=== PATIENT | male | born 1965 | race African-American/Black ===

== ENCOUNTER → 2019-04-12 | Outpatient (CLI) | payer OTHER | LOC: YHH 12:35 ==

== ENCOUNTER 2019-09-25 11:55 | Emergency (ER) | payer OTHER ==
--- NOTE | 2019-09-25 12:09 | PDOC ---
History of Present Illness - General Chief Complaint: Pain, Acute Stated Complaint: ABDOMINAL PAIN Time Seen by Provider: 09/25/19 12:07 History Source: Patient Exam Limitations: No Limitations - History of Present Illness Initial Comments: 09/25/19 12:08 PCP: Anisha Rivera HPI: 53 M pmh HTN, HLD, COPD, ESRD (s/p kidney transplant 07/15/19 at [facility]), HIV, presenting with RLQ pain for 6 hours. Pain started at 6AM, described as throbbing, constant, progressively worsening, not relieved by Tylenol at 7AM, patient is unable to get into a comfortable position. Endorses subjective fevers , no chills, +nausea at home with 2 episodes of emesis this morning - no blood, just food from last night. Also endorsing SOB with the pain - non exertional, not at rest, no cough, none at the current time, no chest pain / tightness / edema. No history of kidney stones or UTI. Normal urination this morning and in the department without blood, odor, pain, burning. Normal BM this morning without blood or dark color. Follows with the [facility], Dr. Eveline Murdock. Scheduled for appointment 09/29/2019. [phone] All: Denies to me Meds: Prograf 16 mg BID, Cellcept 500 mg BID, Prednisone 5 daily, Valgancyclovir 450 mg MWF, Bactrim 500/80 daily, Protonix 40 mg daily, Nystatin , Colace 100 mg, Senna 8.6, Asa 81 mg, Dolutegravir 50 mg BID, Abacavir 600 mg daily, Lamivudine 25 mg, Nifedipine XL 60 mg BID, Tamsulosin 0.4 mg qHS, Metoprolol tartrate 25 mg BID, Sodium Bicarbonate BID PMH: As above PSH: As above SHx: History of Cocaine, ETOH, Marijuana Past History - Travel Traveled outside of the country in the last 30 days: No Close contact w/someone who was outside of country & ill: No - Past Medical History Allergies/Adverse Reactions: Allergies Allergy/AdvReac Type Severity Reaction Status Date / Time aspirin Allergy Intermediate bleeding, Verified 09/25/19 11:59 nausea Home Medications: Ambulatory Orders Abacavir Sulfate [Ziagen -] 2 tab PO DAILY #60 tablet 05/18/19 Lamivudine [Epivir Hbv] 25 mg PO DAILY #150 ml 05/18/19 Aspirin [ASA -] 81 mg PO DAILY 09/13/19 Darbepoetin Mike in Polysorbat [Aranesp] 40 mcg IJ WEEKLY 09/13/19 Docusate Sodium [Colace -] 100 mg PO TID PRN 09/13/19 Dolutegravir Sodium [Tivicay] 50 mg PO BID 09/13/19 Metoprolol Tartrate [Lopressor -] 50 mg PO BID 09/13/19 Mycophenolate Mofetil [Cellcept -] 1 tab PO BID 09/13/19 Nifedipine [Procardia Xl] 2 tab PO BID 09/13/19 Pantoprazole Sodium [Protonix] 40 mg PO DAILY 09/13/19 Prednisone 10 mg PO DAILY 09/13/19 Sennosides [Senna] 2 tab PO HS PRN 09/13/19 Sodium Bicarbonate - 2 tab PO BID 09/13/19 Tacrolimus Anhydrous [Prograf] 5 mg PO BID 09/13/19 Tacrolimus Anhydrous [Prograf] 15 cap PO BID 09/13/19 Tamsulosin HCl [Flomax] 0.4 mg PO HS 09/13/19 Valganciclovir HCl [Valcyte] 1 tab PO ASDIR 09/13/19 Magnesium Oxide 400 mg PO DAILY 09/25/19 Sulfamethoxazole/Trimethoprim [Bactrim Single Strength -] 1 tab PO DAILY Anemia: Yes Cancer: No Cardiac Disorders: Yes COPD: Yes (pulm nodules) CHF: Yes Diabetes: No Dialysis: Yes (perma cath rt chest wall) GI Disorders: Yes (GERD) HTN: Yes Liver Disease: No Psychiatric Problems: Yes Seizures: No - Surgical History Lung Surgery: Yes (THORACENTESIS) Neurologic Surgery: No - Psycho Social/Smoking Cessation Hx Smoking History: Former smoker Have you smoked in the past 12 months: Yes Number of Cigarettes Smoked Daily: 3 If you are a former smoker, when did you quit?: 2014 Cigars Per Day: 0 'Breaking Loose' booklet given: 10/17/14 Hx Alcohol Use: Yes (none since 2009) Drug/Substance Use Hx: Yes Substance Use Type: Alcohol, Cocaine, Marijuana Hx Substance Use Treatment: Yes (2009 detox and rehab) Review of Systems - Review of Systems Able to Perform ROS?: Yes Is the patient limited [place] proficient: Yes Constitutional: Yes: Fever (subjective). No: Chills, Diaphoresis HEENTM: No: Recent change in vision, Nose Congestion, Throat Pain Respiratory: Yes: Shortness of Breath (with the pain). No: Cough, SOB with Exertion, SOB at Rest, Wheezing, Productive cough, Hemoptysis Cardiac (ROS): No: Chest Pain, Irregular Heart Rate, Chest Tightness ABD/GI: No: Constipated, Diarrhea, Nausea, Poor Appetite, Poor Fluid Intake, Vomiting : No: Burning, Dysuria, Frequency Musculoskeletal: Yes: Back Pain (chronically). No: Muscle Pain, Muscle Weakness Integumentary: No: Pallor, Pruritus, Rash Neurological: No: Headache, Numbness, Tingling, Weakness Psychiatric: No: Stressors, Change in Appetite Endocrine: No: Increased Hunger, Increased Thirst, Unexplained Weight Gain, Unexplained Weight Loss, Change in Weight Hematologic/Lymphatic: No: Anemia, Blood Clots, Easy Bleeding All Other Systems: Reviewed and Negative *Physical Exam - Physical Exam 09/25/19 13:41 Vitals reviewed, AFVSS, hypertensive to 184/92 on arrival GEN: Obese, groaning loudly, swearing, appears stated age, NAD, uncomfortable, moving about the room in various positions. HEENT: NCAT, EOMI, PERRL. Sclera anicteric, non-injected. No facial asymmetry. Moist mucous membranes. Normal voice. Trachea midline. CV: RRR, S1/S2, no murmurs / rubs / gallops appreciated. LUNG: CTAB, normal work of breathing. No wheezes, rales, rhonchi. No cough. Speaking full sentences. GI: Soft, fibrotic mass in RLQ, +BS, +guarding with muscles and hands, unable to assess rebound. +CVAT on the right. +exlap scar, other surgical scars from kidney transplant. EXTREMITIES: 2+ distal pulses. No LE edema. No obvious deformities of all extremities. SKIN: Warm, dry, no rashes appreciated, non-jaundiced. PSYCH: Uncooperative, verbally aggressive/abusive with IV placement. NEURO: A&Ox3, CN grossly intact. Moving all extremities well. Normal strength and sensation grossly. ED Treatment Course - LABORATORY CBC & Chemistry Diagram: 09/25/19 13:20 09/25/19 12:30 Medical Decision Making - Medical Decision Making 09/25/19 13:51 53 M PMH HTN, HLD, COPD, ESRD (s/p kidney transplant 07/15/19 at [facility]), HIV, presenting with RLQ pain for 6 hours. History notable for transplant 3 months ago, acute onset of pain this AM, inability to get comfortable. Exam notable for hypertension, discomfort, R sided abdominal tenderness. DDX: Kidney stone, appendicitis, subacute graft failure/ischemia, renal artery stenosis, pancreatitis. - CBC, CMP, Mg, Phos, Lipase, Amylase, Lactate, Coags - UA, UCx - EKG, CXR - Plan for CTAP, with contrast pending GFR - 4mg Morphine POCUS PIV placed by myself and Dr. Clemetn in proximal left AC 09/25/19 18:09 - Cr 1.7, c/w 1.8 earlier this month per chart review - Pain is improving s/p 4mg morphine, 1L IVF, nap - Pending CT Results - Labs notable for elevated LFTs compared with prior, otherwise unremarkable 09/25/19 18:40 - Patient remains comfortable - CT concerning for cholecystitis, limited assessment of transplanted kidney - RUQ US ordered, Renal US ordered - ABX ordered, levcarmen, amparo 09/25/19 20:09 - Patient agrees to transfer - Accepted by Dr. Jeannie aSntana, Transplant Nephrology - Sign out given to Dr. Murphy, Transplant Surgeon - Face sheet sent, [facility] arranging [facility] transport Dispo: Transfer, [facility] Discharge - Discharge Information Problems reviewed: Yes Clinical Impression/Diagnosis: Transaminitis, Cholecystitis Condition: Guarded - Admission Yes - Follow up/Referral - Patient Discharge Instructions - Post Discharge Activity - Transfer to Acute Care Facility Receiving Facility [facility]: [facility] Accepting Physician:: Dr. Jeannie Santana
[2019-09-25 12:12] VITALS: BMI 25.1
--- NOTE | 2019-09-25 12:26 | PDOC ---
Attending Attestation - Resident Resident Name: HowardRichardRan - ED Attending Attestation I have performed the following: I have examined & evaluated the patient, The case was reviewed & discussed with the resident, I agree w/resident's findings & plan, Exceptions are as noted - HPI HPI: 09/25/19 12:23 51y M hx of htn, hl, HIV (on HAART), ckd sp kidney transplant presents with complaint of severe RLQ pain since 6am that is throbbing, progressively worsening without alleviating factors. No improvement with tylenol. Pt endorses nausea/ nbnb vomiting with his pain. There is no associated fever and chills, denies any problems iwth dysuria, hematuria, diarrhea melena, bpr. Denies any history of similar pain in the past. On exam the patient appears uncomfortable, is writhing around and groaning. Patient has mild diffuse right-sided abdominal pain, there is also pain with percussion. No CVA tenderness Pulmonary exam clear. Trace lower extremity edema Cardiac exam regular rate and rhythm Differential for the patient's symptoms includes appendicitis, graft rejection, kidney stone We will give the patient morphine for pain control, fluids for hydration, will obtain blood work and CT of the abdomen. - Physicial Exam PE: 09/25/19 18:33 see above - Medical Decision Making 09/25/19 17:36 The patient's labs are reviewed noted for mild anemia and the patient's creatinine is also noted to be 1.7 it is unclear what his baseline creatinine is. Patient's LFTs are also elevated. Awaiting CT of the abdomen 09/25/19 18:25 ct noted for thickened gb wall - ?cholecystitis - pt written for flagyl/levaquin also kidney was not normal appearing - will obtain kidney US and RUQ US [facility] transplant for possible transfer case signed out to evening team for dispo and reassessment Heart Score/ECG Review - ECG Impressions Comment:: 09/25/19 18:33 Twelve-lead EKG was performed and reviewed by me. There is normal sinus rhythm with a normal rate. Rate of [address] wave changes suggestive of acute ischemia
[2019-09-25] MEDS ORDERED: morphine CARPU-JECT 4 MG/1 ML DISP.SYRIN IVPUSH ONE (12:32)
[2019-09-25] MEDS ORDERED: morphine SULFATE 4 MG/ML VIAL ONE (13:05)
[2019-09-25 13:31] LABS: BASO % 0.5 % (0-2.0); HEMATOCRIT 30.2 % (35.4-49); HEMOGLOBIN 9.3 GM/dL (11.7-16.9); LYMPH % 4.7 % (8-40); MCH 25.4 pg (25.7-33.7); MCHC 30.6 g/dl (32.0-35.9); MEAN CELL VOLUME 82.9 fl (80-96); MEAN PLT VOLUME 8.1 fl (7.5-11.1); MONO % 8.3 % (3.8-10.2); NEUT % 86.5 % (42.8-82.8); PLATELET COUNT 261 K/MM3 (134-434); RBC 3.65 M/mm3 (4.00-5.60); RDW 18.1 % (11.9-15.9)
[2019-09-25 13:50] LABS: EPI CELLS 0.7 /HPF (0-5/HPF); HYALINE CASTS 0 /lpf (0-8); URINE APPEARANCE CLEAR; URINE BACTERIA 26.6 /hpf (NEGATIVE); URINE BILIRUBIN NEGATIVE (NEGATIVE); URINE COLOR YELLOW; URINE GLUCOSE (UA) TRACE (NEGATIVE); URINE KETONE NEGATIVE (NEGATIVE); URINE LEUK ESTERASE NEGATIVE (NEGATIVE); URINE NITRITE NEGATIVE (NEGATIVE); URINE PROTEIN 2+ (NEGATIVE); URINE RBC 1 /hpf (0-4); URINE UROBILINOGEN 0.2 mg/dL (0.2-1.0); URINE WBC 1 /hpf (0-5)
[2019-09-25 13:51] LABS: MAGNESIUM 1.7 mg/dL (1.8-2.4); PHOSPHOROUS 2.1 mg/dL (2.5-4.9)
[2019-09-25 13:54] LABS: ALBUMIN 3.5 g/dl (3.4-5.0); BILIRUBIN,TOTAL 0.8 mg/dL (0.2-1); BLOOD UREA NITROGEN 30.7 mg/dL (7-18); CALCIUM 10.5 mg/dL (8.5-10.1); CREATININE 1.7 mg/dL (0.55-1.3); POTASSIUM 4.5 mmol/L (3.5-5.1); TOT PROT 6.4 g/dl (6.4-8.2)
[2019-09-25] MEDS ORDERED: SODIUM CHLORIDE 1,000 ML IV ONE (14:15)
--- NOTE | 2019-09-25 14:37 | EKG ---
Test Reason : Blood Pressure : / mmHG Vent. Rate : 084 BPM Atrial Rate : 084 BPM P-R Int : 168 ms QRS Dur : 088 ms QT Int : 342 ms P-R-T Axes : 069 -03 045 degrees QTc Int : 404 ms NORMAL SINUS RHYTHM POSSIBLE LEFT ATRIAL ENLARGEMENT BORDERLINE ECG Confirmed by MD HORTENSIA, DM ([id number]) on 09/25/2019 2:37:25 PM Referred By: Confirmed By:DM BAZAN MD
[2019-09-25 14:59] LABS: ANISOCYTOSIS 1+; MACROCYTOSIS 0; PLATELET ESTIMATE NORMAL
[2019-09-25 17:38] VITALS: TEMP 98
[2019-09-25 22:18] VITALS: BP 169/79; PULSE 96
== END 2019-09-25 23:06 | disposition short-term general hospital (02) ==
LOC: JER 11:55
PROC: 3E0 Administration, Physiological Systems and Anatomical Regions, Introduction (ICD-10-PCS; principal; 2019-09-25)
PROC: 3E03329 Introduction of Other Anti-infective into Peripheral Vein, Percutaneous Approach (ICD-10-PCS; 2019-09-25)
PROC: 3E033NZ Introduction of Analgesics, Hypnotics, Sedatives into Peripheral Vein, Percutaneous Approach (ICD-10-PCS; 2019-09-25)
DX: K81.9 Cholecystitis, unspecified (principal); R74.0 Nonspecific elevation of levels of transaminase and lactic acid dehydrogenase [LDH]; I13.2 Hypertensive heart and chronic kidney disease with heart failure and with stage 5 chronic kidney disease, or end stage renal disease; N18.6 End stage renal disease; Z94.0 Kidney transplant status; E78.5 Hyperlipidemia, unspecified; D64.9 Anemia, unspecified; J44.9 Chronic obstructive pulmonary disease, unspecified; K21.9 Gastro-esophageal reflux disease without esophagitis; Z87.891 Personal history of nicotine dependence; Z21 Asymptomatic human immunodeficiency virus [HIV] infection status; Z95.828 Presence of other vascular implants and grafts; Z86.59 Personal history of other mental and behavioral disorders
CPT/HCPCS: 36415; 71045-TC-FY; 74176-TC; 80053; 81003; 82150; 83605; 83690; 83735; 84100; 85025; 87086; 93005; 93010; 96361; 96365; 96367; 96375; 99285-25; J7030

== ENCOUNTER 2021-01-19 00:55 | Inpatient (IN) | payer OTHER ==
[2021-01-19 03:33] LABS: BASO % 1.3 % (0-2.0); EOS % 0.8 % (0-4.5); HEMATOCRIT 33.6 % (35.4-49); HEMOGLOBIN 10.7 GM/dL (11.7-16.9); LYMPH % 14.6 % (8-40); MCH 27.3 pg (25.7-33.7); MEAN CELL VOLUME 85.4 fl (80-96); MEAN PLT VOLUME 9.1 fl (7.5-11.1); MONO % 6.9 % (3.8-10.2); NEUT % 76.4 % (42.8-82.8); PLATELET COUNT 201 K/MM3 (134-434); RBC 3.93 M/mm3 (4.00-5.60); RDW 17.5 % (11.9-15.9); WHITE BLOOD COUNT 10.6 K/mm3 (4.0-10.0)
[2021-01-19 03:40] LABS: INR 0.89 (0.83-1.09)
[2021-01-19 03:43] LABS: ACTIVATED PTT 34.2 SECONDS (25.2-36.5)
[2021-01-19 03:56] LABS: CALCIUM 9.1 mg/dL (8.5-10.1)
[2021-01-19 03:57] LABS: ALBUMIN 3.6 g/dl (3.4-5.0)
[2021-01-19 04:00] LABS: CREATININE 1.7 mg/dL (0.55-1.3)
[2021-01-19 04:01] LABS: BILIRUBIN,TOTAL 0.3 mg/dL (0.2-1)
[2021-01-19 04:02] LABS: TOT PROT 6.6 g/dl (6.4-8.2)
[2021-01-19] MEDS ORDERED: INSULIN REGULAR HUMAN 100 UNITS/ML *VIAL IVPUSH ONE (04:20)
[2021-01-19] MEDS ORDERED: DEXTROSE 50%-WATER - 25 GM/50 ML VIAL IVPUSH ONE (04:20)
[2021-01-19] MEDS ORDERED: CALCIUM GLUCONATE 10% - 1,000 MG/10 ML VIAL ONE (04:26)
[2021-01-19] MEDS ORDERED: DEXTROSE 50%-WATER 25 GM/50 ML DISP.SYRIN ONE (04:26)
[2021-01-19] MEDS: CALCIUM GLUC IN NACL, ISO-OSM 1 GM/50 ML BAG IVPB ONE ×2 (04:41→07:51)
[2021-01-19] MEDS ORDERED: FUROSEMIDE 40 MG/4 ML INJECTABLE VIAL IVPUSH ONE (05:12)
[2021-01-19] MEDS ORDERED: hydrALAZINE HCL 25 MG TABLET (FP) ONE (06:18)
[2021-01-19] MEDS ORDERED: HEPARIN NA (PORCINE) 5,000 UNITS/ML 1ML VIAL ONE (06:19)
[2021-01-19] MEDS ORDERED: FUROSEMIDE 40 MG/4 ML INJECTABLE VIAL ONE (07:44)
[2021-01-19] MEDS: hydrALAZINE HCL 50 MG TABLET (FP) PO SCH ×3 (08:42→22:27)
[2021-01-19] MEDS: HEPARIN NA (PORCINE) 5,000 UNITS/ML 1ML VIAL SQ SCH ×3 (08:43→22:29)
[2021-01-19] MEDS ORDERED: TACROLIMUS ANHYDROUS 1 MG CAPSULE PO SCH (10:00)
[2021-01-19] MEDS ORDERED: ASPIRIN 81 MG CHEWABLE TABLETS PO SCH (10:00)
[2021-01-19] MEDS ORDERED: PT OWN MED DRAWER 7, Y5N ONE ×2 (11:17→22:02)
[2021-01-19] MEDS: TACROLIMUS ANHYDROUS PO SCH ×2 (11:41→22:29)
[2021-01-19] MEDS: MYCOPHENOLATE MOFETIL 500 MG TABLET PO SCH ×2 (11:42→22:28)
[2021-01-19 12:06] LABS: HEMATOCRIT 34.2 % (35.4-49); HEMOGLOBIN 10.7 GM/dL (11.7-16.9); MCH 26.5 pg (25.7-33.7); MCHC 31.2 g/dl (32.0-35.9); MEAN CELL VOLUME 84.9 fl (80-96); PLATELET COUNT 198 K/MM3 (134-434); RBC 4.03 M/mm3 (4.00-5.60); RDW 17.2 % (11.9-15.9)
[2021-01-19 12:28] LABS: ALBUMIN 3.8 g/dl (3.4-5.0); BLOOD UREA NITROGEN 40.6 mg/dL (7-18); CALCIUM 9.5 mg/dL (8.5-10.1); MAGNESIUM 2.1 mg/dL (1.8-2.4)
[2021-01-19 12:32] LABS: CREATININE 1.7 mg/dL (0.55-1.3); PHOSPHOROUS 2.7 mg/dL (2.5-4.9)
[2021-01-19 12:33] LABS: BILIRUBIN,TOTAL 0.5 mg/dL (0.2-1); TOT PROT 6.9 g/dl (6.4-8.2)
[2021-01-19] MEDS: predniSONE 5 MG TABLET (UD) PO SCH (15:13)
[2021-01-19 15:32] VITALS: BMI 26.4
[2021-01-20] MEDS: hydrALAZINE HCL 50 MG TABLET (FP) PO SCH ×3 (05:53→23:03)
[2021-01-20] MEDS: HEPARIN NA (PORCINE) 5,000 UNITS/ML 1ML VIAL SQ SCH ×3 (05:53→23:02)
[2021-01-20 07:15] LABS: HEMATOCRIT 31.3 % (35.4-49); MCH 27.5 pg (25.7-33.7); MCHC 31.9 g/dl (32.0-35.9); MEAN CELL VOLUME 86.1 fl (80-96); MEAN PLT VOLUME 8.7 fl (7.5-11.1); PLATELET COUNT 168 K/MM3 (134-434); RBC 3.64 M/mm3 (4.00-5.60); RDW 17.5 % (11.9-15.9)
[2021-01-20 07:39] LABS: ALBUMIN 3.2 g/dl (3.4-5.0); BLOOD UREA NITROGEN 27.6 mg/dL (7-18)
[2021-01-20 07:40] LABS: BILIRUBIN,TOTAL 0.5 mg/dL (0.2-1); CALCIUM 9.5 mg/dL (8.5-10.1); TOT PROT 5.8 g/dl (6.4-8.2)
[2021-01-20 07:42] LABS: CREATININE 1.5 mg/dL (0.55-1.3); MAGNESIUM 1.9 mg/dL (1.8-2.4)
[2021-01-20 07:43] LABS: PHOSPHOROUS 2.9 mg/dL (2.5-4.9)
[2021-01-20] MEDS ORDERED: PT OWN MED DRAWER 7, Y5N ONE ×4 (09:08→21:28)
[2021-01-20] MEDS: predniSONE 5 MG TABLET (UD) PO SCH (10:31)
[2021-01-20] MEDS: MYCOPHENOLATE MOFETIL 500 MG TABLET PO SCH ×2 (12:05→23:01)
[2021-01-20] MEDS: TACROLIMUS ANHYDROUS PO SCH ×2 (12:05→23:04)
[2021-01-20] MEDS ORDERED: DOCUSATE SODIUM 100 MG CAPSULE (FP) PO PRN (12:58)
[2021-01-20] MEDS ORDERED: DOLUTEGRAVIR SODIUM 50 MG TABLET (NON-FORMULARY) PO SCH (22:00)
[2021-01-20] MEDS ORDERED: lamiVUDine 150 MG TABLET PO SCH (22:00)
[2021-01-21] MEDS: hydrALAZINE HCL 50 MG TABLET (FP) PO SCH ×2 (05:20→13:07)
[2021-01-21] MEDS: HEPARIN NA (PORCINE) 5,000 UNITS/ML 1ML VIAL SQ SCH (05:20)
[2021-01-21 06:38] LABS: BASO % 0.7 % (0-2.0); EOS % 1.1 % (0-4.5); HEMOGLOBIN 10.7 GM/dL (11.7-16.9); LYMPH % 25.3 % (8-40); MCH 27.2 pg (25.7-33.7); MCHC 31.5 g/dl (32.0-35.9); MEAN CELL VOLUME 86.2 fl (80-96); MEAN PLT VOLUME 8.6 fl (7.5-11.1); NEUT % 62.9 % (42.8-82.8); PLATELET COUNT 185 K/MM3 (134-434); RBC 3.95 M/mm3 (4.00-5.60); RDW 17.3 % (11.9-15.9); WHITE BLOOD COUNT 8.2 K/mm3 (4.0-10.0)
[2021-01-21 07:03] LABS: ALBUMIN 3.6 g/dl (3.4-5.0); BLOOD UREA NITROGEN 24.1 mg/dL (7-18); CALCIUM 9.7 mg/dL (8.5-10.1); MAGNESIUM 1.9 mg/dL (1.8-2.4)
[2021-01-21 07:06] LABS: CREATININE 1.4 mg/dL (0.55-1.3); PHOSPHOROUS 2.8 mg/dL (2.5-4.9)
[2021-01-21 07:08] LABS: BILIRUBIN,TOTAL 0.5 mg/dL (0.2-1); TOT PROT 6.5 g/dl (6.4-8.2)
[2021-01-21] MEDS ORDERED: PT OWN MED DRAWER 7, Y5N ONE (09:37)
[2021-01-21] MEDS: MYCOPHENOLATE MOFETIL 500 MG TABLET PO SCH (09:48)
[2021-01-21] MEDS: predniSONE 5 MG TABLET (UD) PO SCH (09:48)
[2021-01-21] MEDS: TACROLIMUS ANHYDROUS PO SCH (09:49)
[2021-01-21] MEDS ORDERED: ABACAVIR SULFATE 300 MG TABLET PO SCH (10:00)
[2021-01-21 14:51] VITALS: BP 163/93; PULSE 104; TEMP 98.4
== END 2021-01-21 15:12 | disposition home or self-care (01) | DRG 291 ==
LOC: JER 00:55 → JERBED 04:21 → J4W 09:49
PROVIDERS: ADMIT Internal Medicine; ATTEND Internal Medicine
DX: I13.2 Hypertensive heart and chronic kidney disease with heart failure and with stage 5 chronic kidney disease, or end stage renal disease (principal); I50.23 Acute on chronic systolic (congestive) heart failure; Z94.0 Kidney transplant status; Z21 Asymptomatic human immunodeficiency virus [HIV] infection status; J44.9 Chronic obstructive pulmonary disease, unspecified; R59.1 Generalized enlarged lymph nodes; R74.01 Elevation of levels of liver transaminase levels; N18.9 Chronic kidney disease, unspecified; E87.5 Hyperkalemia
CPT/HCPCS: 36415; 71045-TC-FY; 76700-TC; 80053; 80197; 82550; 82553; 82728; 82962; 83540; 83550; 83735; 83880; 84100; 84484; 85025; 85027; 85045; 85610; 85730; 93005; 93010; 97116-GP; 97161-GP; 99285-25; C9803; J1644; J7517; U0003; U0005

== ENCOUNTER 2022-08-16 11:31 | Observation (INO) | payer OTHER ==
[2022-08-16 11:43] VITALS: RESP 18
[2022-08-16 14:17] LABS: BASO % 0.7 % (0-2.0); EOS % 1.1 % (0-4.5); HEMATOCRIT 37.8 % (35.4-49); HEMOGLOBIN 11.5 GM/dL (11.7-16.9); LYMPH % 13.2 % (8-40); MCH 24.9 pg (25.7-33.7); MCHC 30.4 g/dl (32.0-35.9); MEAN PLT VOLUME 8.6 fl (7.5-11.1); MONO % 9.3 % (3.8-10.2); NEUT % 75.7 % (42.8-82.8); PLATELET COUNT 218 10^3/uL (134-434); RBC 4.61 M/mm3 (4.00-5.60); RDW 16.5 % (11.9-15.9); WHITE BLOOD COUNT 12.9 K/mm3 (4.0-10.0)
[2022-08-16 14:42] LABS: ALBUMIN 3.7 g/dl (3.4-5.0); BLOOD UREA NITROGEN 33.9 mg/dL (7-18)
[2022-08-16] MEDS ORDERED: ACETAMINOPHEN 325 MG TABLET (FP) PO ONE (14:46)
[2022-08-16 14:47] LABS: TOT PROT 6.8 g/dl (6.4-8.2)
[2022-08-16] MEDS ORDERED: ACETAMINOPHEN 325 MG TABLET (FP) ONE (14:49)
[2022-08-16 14:50] LABS: N-TERMINAL BNP 3911.9 pg/ml (5-125)
[2022-08-16 14:55] LABS: BILIRUBIN,TOTAL 0.7 mg/dL (0.2-1); CREATININE 2.4 mg/dL (0.55-1.3)
[2022-08-16] MEDS ORDERED: FUROSEMIDE 20 MG TABLET (FP) PO ONE (15:08)
[2022-08-16] MEDS ORDERED: FUROSEMIDE 20 MG TABLET (FP) ONE (15:58)
[2022-08-16] MEDS ORDERED: oxyCODONE HCL 5 MG TABLET PO ONE ×2 (16:07→20:27)
[2022-08-16] MEDS ORDERED: oxyCODONE HCL 5 MG TABLET ONE ×2 (16:21→20:28)
[2022-08-16] MEDS ORDERED: MELATONIN 5 MG TABLETS PO PRN (16:47)
[2022-08-16] MEDS ORDERED: DOCUSATE SODIUM 100 MG CAPSULE (FP) PO PRN (16:47)
[2022-08-16] MEDS ORDERED: ARTIFICIAL TEARS (POLYVINYL ALCOHOL) OPTH DROPS OU PRN (16:47)
[2022-08-16] MEDS ORDERED: ALBUTEROL SO4 HFA INHALER IH PRN (16:47)
[2022-08-16] MEDS ORDERED: SENNOSIDES 8.6MG TABLET (FP) PO PRN (16:47)
[2022-08-16] MEDS ORDERED: HEPARIN NA (PORCINE) 5,000 UNITS/ML 1ML VIAL ONE (21:17)
[2022-08-16] MEDS ORDERED: TAMSULOSIN HCL 0.4 MG CAP ONE (21:17)
[2022-08-16] MEDS ORDERED: hydrALAZINE HCL 50 MG TABLET (FP) ONE (21:17)
[2022-08-16] MEDS: TAMSULOSIN HCL 0.4 MG CAP PO SCH (21:28)
[2022-08-16] MEDS: BUDESONIDE/FORMETEROL FUMARATE 80/4.5 mcg INHALER IH SCH (21:28)
[2022-08-16] MEDS: lamiVUDine 150 MG TABLET PO SCH (21:28)
[2022-08-16] MEDS: HEPARIN NA (PORCINE) 5,000 UNITS/ML 1ML VIAL SQ SCH (21:28)
[2022-08-16] MEDS: hydrALAZINE HCL 50 MG TABLET (FP) PO SCH (21:28)
[2022-08-16] MEDS: MYCOPHENOLATE MOFETIL 500 MG TABLET PO SCH (21:28)
[2022-08-16] MEDS: TACROLIMUS ANHYDROUS PO SCH (21:28)
[2022-08-16] MEDS: DOLUTEGRAVIR SODIUM 50 MG TABLET (NON-FORMULARY) PO SCH (21:28)
[2022-08-16] MEDS: SODIUM BICARBONATE 650 MG TABLET PO SCH (21:28)
[2022-08-16] MEDS ORDERED: TACROLIMUS ANHYDROUS 1 MG CAPSULE PO SCH (22:00)
[2022-08-17] MEDS ORDERED: HEPARIN NA (PORCINE) 5,000 UNITS/ML 1ML VIAL ONE ×2 (05:53→15:19)
[2022-08-17] MEDS ORDERED: hydrALAZINE HCL 50 MG TABLET (FP) ONE ×2 (05:53→15:18)
[2022-08-17] MEDS: HEPARIN NA (PORCINE) 5,000 UNITS/ML 1ML VIAL SQ SCH ×2 (06:12→15:26)
[2022-08-17] MEDS: hydrALAZINE HCL 50 MG TABLET (FP) PO SCH ×3 (06:12→23:59)
[2022-08-17] MEDS ORDERED: NIFEdipine E.R. 30 MG TABLET PO SCH (10:00)
[2022-08-17] MEDS ORDERED: PANTOPRAZOLE 40 MG TABLET PO ONE (10:34)
[2022-08-17] MEDS ORDERED: cloNIDine HCL 0.1 MG TABLET ONE (10:35)
[2022-08-17] MEDS ORDERED: FUROSEMIDE 20 MG TABLET (FP) ONE (10:35)
[2022-08-17] MEDS ORDERED: MAGNESIUM OXIDE 400 MG TABLET (FP) ONE (10:35)
[2022-08-17] MEDS ORDERED: ISOSORBIDE MONONITRATE 30 MG TAB.SR.24H (FP) PO ONE (10:35)
[2022-08-17] MEDS ORDERED: ASPIRIN 81 MG CHEWABLE TABLETS ONE (10:35)
[2022-08-17] MEDS ORDERED: CHOLECALCIFEROL (VIT D3) 1,000 UNIT (25 MCG) TABLET ONE (10:35)
[2022-08-17] MEDS: FUROSEMIDE 20 MG TABLET (FP) PO SCH (12:03)
[2022-08-17] MEDS: ASPIRIN 81 MG CHEWABLE TABLETS PO SCH (12:03)
[2022-08-17] MEDS: cloNIDine HCL 0.1 MG TABLET PO SCH (12:03)
[2022-08-17] MEDS: ISOSORBIDE MONONITRATE 30 MG TAB.SR.24H (FP) PO SCH (12:05)
[2022-08-17] MEDS: predniSONE 5 MG TABLET (UD) PO SCH (12:06)
[2022-08-17] MEDS: PANTOPRAZOLE 40 MG TABLET PO SCH (12:06)
[2022-08-17] MEDS: MAGNESIUM OXIDE 400 MG TABLET (FP) PO SCH (12:06)
[2022-08-17] MEDS: lamiVUDine 150 MG TABLET PO SCH (12:08)
[2022-08-17] MEDS: DOLUTEGRAVIR SODIUM 50 MG TABLET (NON-FORMULARY) PO SCH (12:08)
[2022-08-17] MEDS: CINACALCET HCL 30 MG TAB (FP) PO SCH (12:09)
[2022-08-17] MEDS: TACROLIMUS ANHYDROUS PO SCH (12:10)
[2022-08-17] MEDS: MYCOPHENOLATE MOFETIL 500 MG TABLET PO SCH (12:11)
[2022-08-17] MEDS: CHOLECALCIFEROL (VIT D3) 1,000 UNIT (25 MCG) TABLET PO SCH (12:11)
[2022-08-17] MEDS: BUDESONIDE/FORMETEROL FUMARATE 80/4.5 mcg INHALER IH SCH (13:40)
[2022-08-17] MEDS: SODIUM BICARBONATE 650 MG TABLET PO SCH ×2 (13:41→23:59)
[2022-08-17] MEDS: ABACAVIR SULFATE 300 MG TABLET PO SCH (13:42)
[2022-08-17 16:41] LABS: CALCIUM 10.4 mg/dL (8.5-10.1)
[2022-08-17 16:42] LABS: ALBUMIN 3.3 g/dl (3.4-5.0); BLOOD UREA NITROGEN 30.1 mg/dL (7-18)
[2022-08-17 16:45] LABS: CREATININE 2.4 mg/dL (0.55-1.3)
[2022-08-17 16:47] LABS: BILIRUBIN,TOTAL 0.6 mg/dL (0.2-1); TOT PROT 6.2 g/dl (6.4-8.2)
[2022-08-18] MEDS: MYCOPHENOLATE MOFETIL 500 MG TABLET PO SCH ×3 (00:01→23:50)
[2022-08-18] MEDS: BUDESONIDE/FORMETEROL FUMARATE 80/4.5 mcg INHALER IH SCH ×3 (00:02→22:45)
[2022-08-18] MEDS: TAMSULOSIN HCL 0.4 MG CAP PO SCH ×2 (00:16→22:43)
[2022-08-18] MEDS: cloNIDine HCL 0.1 MG TABLET PO SCH ×4 (00:16→22:43)
[2022-08-18] MEDS: ACETAMINOPHEN 325 MG TABLET (FP) PO PRN (00:43)
[2022-08-18] MEDS: lamiVUDine 150 MG TABLET PO SCH ×4 (00:52→23:51)
[2022-08-18] MEDS: TACROLIMUS ANHYDROUS PO SCH ×4 (00:53→23:50)
[2022-08-18] MEDS: DOLUTEGRAVIR SODIUM 50 MG TABLET (NON-FORMULARY) PO SCH ×3 (00:53→23:51)
[2022-08-18] MEDS ORDERED: oxyCODONE HCL 5 MG TABLET PO ONE (03:44)
[2022-08-18] MEDS: hydrALAZINE HCL 50 MG TABLET (FP) PO SCH ×3 (07:02→22:42)
[2022-08-18] MEDS: HEPARIN NA (PORCINE) 5,000 UNITS/ML 1ML VIAL SQ SCH ×4 (07:03→22:44)
[2022-08-18] MEDS ORDERED: ACETAMINOPHEN 500 MG TABLET (FP) PO ONE (10:07)
[2022-08-18] MEDS: predniSONE 5 MG TABLET (UD) PO SCH (10:44)
[2022-08-18] MEDS: SODIUM BICARBONATE 650 MG TABLET PO SCH ×3 (10:44→22:43)
[2022-08-18] MEDS: FUROSEMIDE 20 MG TABLET (FP) PO SCH (10:44)
[2022-08-18] MEDS: ASPIRIN 81 MG CHEWABLE TABLETS PO SCH (10:44)
[2022-08-18] MEDS: CHOLECALCIFEROL (VIT D3) 1,000 UNIT (25 MCG) TABLET PO SCH ×2 (10:44→13:36)
[2022-08-18] MEDS: ISOSORBIDE MONONITRATE 30 MG TAB.SR.24H (FP) PO SCH (10:44)
[2022-08-18] MEDS: PANTOPRAZOLE 40 MG TABLET PO SCH (10:44)
[2022-08-18] MEDS: MAGNESIUM OXIDE 400 MG TABLET (FP) PO SCH (10:44)
[2022-08-18] MEDS: CINACALCET HCL 30 MG TAB (FP) PO SCH (10:45)
[2022-08-18] MEDS: ABACAVIR SULFATE 300 MG TABLET PO SCH (10:48)
[2022-08-18] MEDS: LIDOCAINE 5% TOPICAL PATCH TP SCH (11:30)
[2022-08-18] MEDS ORDERED: LIDOCAINE PATCH REMOVAL MC SCH (22:00)
[2022-08-19] MEDS: HEPARIN NA (PORCINE) 5,000 UNITS/ML 1ML VIAL SQ SCH ×2 (06:37→14:15)
[2022-08-19] MEDS: hydrALAZINE HCL 50 MG TABLET (FP) PO SCH ×2 (06:37→14:15)
[2022-08-19] MEDS: ASPIRIN 81 MG CHEWABLE TABLETS PO SCH (11:02)
[2022-08-19] MEDS: cloNIDine HCL 0.1 MG TABLET PO SCH (11:02)
[2022-08-19] MEDS: CHOLECALCIFEROL (VIT D3) 1,000 UNIT (25 MCG) TABLET PO SCH (11:02)
[2022-08-19] MEDS: FUROSEMIDE 20 MG TABLET (FP) PO SCH (11:03)
[2022-08-19] MEDS: ISOSORBIDE MONONITRATE 30 MG TAB.SR.24H (FP) PO SCH (11:03)
[2022-08-19] MEDS: ABACAVIR SULFATE 300 MG TABLET PO SCH (11:04)
[2022-08-19] MEDS: TACROLIMUS ANHYDROUS PO SCH (11:04)
[2022-08-19] MEDS: MYCOPHENOLATE MOFETIL 500 MG TABLET PO SCH (11:04)
[2022-08-19] MEDS: predniSONE 5 MG TABLET (UD) PO SCH (11:04)
[2022-08-19] MEDS: SODIUM BICARBONATE 650 MG TABLET PO SCH (11:05)
[2022-08-19] MEDS: PANTOPRAZOLE 40 MG TABLET PO SCH (11:05)
[2022-08-19] MEDS: LIDOCAINE 5% TOPICAL PATCH TP SCH (11:05)
[2022-08-19] MEDS: CINACALCET HCL 30 MG TAB (FP) PO SCH (11:05)
[2022-08-19] MEDS: MAGNESIUM OXIDE 400 MG TABLET (FP) PO SCH (11:06)
[2022-08-19] MEDS: DOLUTEGRAVIR SODIUM 50 MG TABLET (NON-FORMULARY) PO SCH (11:06)
[2022-08-19] MEDS: lamiVUDine 150 MG TABLET PO SCH (11:06)
[2022-08-19] MEDS: ACETAMINOPHEN 325 MG TABLET (FP) PO PRN (11:08)
[2022-08-19] MEDS: BUDESONIDE/FORMETEROL FUMARATE 80/4.5 mcg INHALER IH SCH (11:11)
[2022-08-19 14:28] VITALS: BP 136/81; PULSE 83; TEMP 98.6
[2022-08-19 15:43] VITALS: BMI 25.4
== END 2022-08-19 17:58 | disposition home or self-care (01) ==
LOC: JER 11:31 → JERBED 16:09 → J7W 08-17 16:42 → JERBED 08-18 16:17 → J8W 08-18 16:18
PROVIDERS: ADMIT Internal Medicine; ATTEND Internal Medicine
PROC: 3E023GC Introduction of Other Therapeutic Substance into Muscle, Percutaneous Approach (ICD-10-PCS; principal; 2022-08-16)
DX: I13.0 Hypertensive heart and chronic kidney disease with heart failure and stage 1 through stage 4 chronic kidney disease, or unspecified chronic kidney disease (principal); I50.9 Heart failure, unspecified; N18.9 Chronic kidney disease, unspecified; B20 Human immunodeficiency virus [HIV] disease; Y00.XXXA Assault by blunt object, initial encounter; Y93.89 Activity, other specified; Z94.0 Kidney transplant status; Y92.89 Other specified places as the place of occurrence of the external cause; R56.9 Unspecified convulsions; J44.9 Chronic obstructive pulmonary disease, unspecified; N20.0 Calculus of kidney; Z99.2 Dependence on renal dialysis; D64.9 Anemia, unspecified; Z88.8 Allergy status to other drugs, medicaments and biological substances; F17.210 Nicotine dependence, cigarettes, uncomplicated; F14.21 Cocaine dependence, in remission
CPT/HCPCS: 0241U-QW; 36415; 71046-TC-FY; 73590-TC-LT-FY; 73610-TC-LT-FY; 80053; 83880; 84484; 85025; 93005; 93010; 93970-TC; 96372; 97116-GP; 97161-GP; 99285-25; G0378; J1644; J7517

== ENCOUNTER 2023-04-25 06:05 | Inpatient (IN) | payer OTHER ==
[2023-04-25] MEDS: ALBUTEROL SO4 2.5/IPRATROPIUM 0.5 INH SOL 3 ML VIAL.NEB. NEB SCH ×4 (06:30→08:23)
[2023-04-25 07:03] LABS: BASO % 0.4 % (0-2.0); EOS % 1.5 % (0-4.5); HEMATOCRIT 36.2 % (35.4-49); HEMOGLOBIN 11.7 GM/dL (11.7-16.9); LYMPH % 7.9 % (8-40); MCH 25.5 pg (25.7-33.7); MCHC 32.2 g/dl (32.0-35.9); MEAN CELL VOLUME 79.1 fl (80-96); MEAN PLT VOLUME 8.7 fl (7.5-11.1); NEUT % 84.2 % (42.8-82.8); PLATELET COUNT 196 10^3/uL (134-434); RBC 4.58 M/mm3 (4.00-5.60); WHITE BLOOD COUNT 14.5 K/mm3 (4.0-10.0)
[2023-04-25 07:11] LABS: INR 1.08 (0.83-1.09); PROTHROMBIN TIME (PATIENT) 12.5 SEC (9.7-13.0)
[2023-04-25 07:14] LABS: ACTIVATED PTT 36.1 SECONDS (25.2-36.5)
[2023-04-25 07:19] LABS: CHLORIDE 118 mmol/L (98-107); SODIUM 141 mmol/L (136-145)
[2023-04-25 07:21] LABS: CALCIUM 9.8 mg/dL (8.5-10.1)
[2023-04-25 07:22] LABS: ALBUMIN 3.4 g/dl (3.4-5.0); BLOOD UREA NITROGEN 36.6 mg/dL (7-18); CO2 20 mmol/L (21-32); GLUCOSE,RANDOM 101 mg/dL (74-106); MAGNESIUM 2.1 mg/dL (1.8-2.4)
[2023-04-25 07:25] LABS: CREATININE 2.4 mg/dL (0.55-1.3); SGOT/AST 63 U/L (15-37); SGPT/ALT 42 U/L (13-61)
[2023-04-25 07:26] LABS: BILIRUBIN,TOTAL 0.6 mg/dL (0.2-1); TOT PROT 7.4 g/dl (6.4-8.2)
[2023-04-25 07:28] LABS: ALK PHOS 94 U/L (45-117)
[2023-04-25 07:30] LABS: N-TERMINAL BNP 24036.3 pg/ml (5-125)
[2023-04-25 07:32] LABS: VENOUS PH 7.362 (7.310-7.410)
[2023-04-25] MEDS ORDERED: VANCOMYCIN HCL 1,500 MG in DEXTROSE 5%-WATER - 500 ML IVPB ONE (07:33)
[2023-04-25] MEDS ORDERED: FUROSEMIDE 40 MG/4 ML INJECTABLE VIAL IVPUSH ONE ×2 (07:33→15:30)
[2023-04-25 07:35] LABS: ANION GAP 3 MMOL/L (8-16); POTASSIUM 6.6 mmol/L (3.5-5.1)
[2023-04-25] MEDS ORDERED: PIPERACILLIN/TAZOB 4.5 GM 4.5 GM in DEXTROSE 5%-WATER 100 ML IVPB ONE (07:37)
[2023-04-25] MEDS ORDERED: FUROSEMIDE 40 MG/4 ML INJECTABLE VIAL ONE (08:01)
[2023-04-25] MEDS ORDERED: ALBUTEROL SO4 2.5/IPRATROPIUM 0.5 INH SOL 3 ML VIAL.NEB. NEB ONE (08:40)
[2023-04-25] MEDS ORDERED: PIPERACILLIN/TAZOB 4.5 GM 4.5 GM/100 ML BAG IVPB ONE (08:41)
[2023-04-25 10:00] LABS: POTASSIUM 4.8 mmol/L (3.5-5.1)
[2023-04-25 10:02] LABS: BLOOD UREA NITROGEN 34.9 mg/dL (7-18)
[2023-04-25 10:05] LABS: CREATININE 2.3 mg/dL (0.55-1.3)
[2023-04-25] MEDS ORDERED: IPRATROPIUM BR 0.02% 0.5 MG/2.5 ML VIAL.NEB. NEB SCH (10:30)
[2023-04-25] MEDS ORDERED: lamiVUDine 150 MG TABLET PO SCH (10:30)
[2023-04-25] MEDS ORDERED: TACROLIMUS ANHYDROUS 1 MG CAPSULE PO SCH (10:30)
[2023-04-25] MEDS ORDERED: AZITHROMYCIN IVPB 500 MG in DEXTROSE 5%-WATER - 250 ML IVPB ONE (11:15)
[2023-04-25] MEDS ORDERED: predniSONE 20 MG TABLET (UD) ONE (11:16)
[2023-04-25] MEDS ORDERED: LEVALBUTEROL HCL 0.63 MG/3 ML VIAL.NEB. IH ONE ×2 (11:16→13:09)
[2023-04-25] MEDS: LEVALBUTEROL HCL 0.63 MG/3 ML VIAL.NEB. IH SCH ×3 (11:21→21:05)
[2023-04-25] MEDS: predniSONE 20 MG TABLET (UD) PO SCH (11:21)
[2023-04-25] MEDS: HEPARIN NA (PORCINE) 5,000 UNITS/ML 1ML VIAL SQ SCH ×2 (11:23→22:32)
[2023-04-25] MEDS ORDERED: lamiVUDine 150 MG TABLET PO ONE (11:45)
[2023-04-25] MEDS: NIFEdipine E.R. 30 MG TABLET PO SCH ×2 (11:46→22:33)
[2023-04-25] MEDS ORDERED: TACROLIMUS ANHYDROUS PO SCH (12:00)
[2023-04-25] MEDS: MYCOPHENOLATE MOFETIL 500 MG TABLET PO SCH ×2 (12:55→22:34)
[2023-04-25] MEDS: ASPIRIN 81 MG CHEWABLE TABLETS PO SCH (12:56)
[2023-04-25] MEDS: DOLUTEGRAVIR SODIUM 50 MG TABLET (NON-FORMULARY) PO SCH ×2 (12:56→22:36)
[2023-04-25] MEDS: ABACAVIR SULFATE 300 MG TABLET PO SCH (12:59)
[2023-04-25] MEDS: hydrALAZINE HCL 50 MG TABLET (FP) PO SCH ×2 (13:06→22:33)
[2023-04-25] MEDS: FUROSEMIDE 40 MG/4 ML INJECTABLE VIAL IVPUSH SCH (13:06)
[2023-04-25] MEDS: IPRATROPIUM BR 0.02% 0.5 MG/2.5 ML VIAL.NEB. NEB SCH ×3 (13:06→21:05)
[2023-04-25] MEDS ORDERED: IPRATROPIUM BR 0.02% 0.5 MG/2.5 ML VIAL.NEB. NEB ONE (13:09)
[2023-04-25] MEDS ORDERED: AZITHROMYCIN IVPB 500 MG/250 ML BAG IVPB ONE (13:09)
[2023-04-25] MEDS ORDERED: ISOSORBIDE MONONITRATE 30 MG TAB.SR.24H (FP) PO ONE (13:09)
[2023-04-25] MEDS: ISOSORBIDE MONONITRATE 30 MG TAB.SR.24H (FP) PO SCH (13:17)
[2023-04-25] MEDS ORDERED: TACROLIMUS ANHYDROUS 5 MG CAPSULE PO SCH (17:22)
[2023-04-25] MEDS: TAMSULOSIN HCL 0.4 MG CAP PO SCH (22:33)
[2023-04-25] MEDS: TACROLIMUS PO SCH (22:35)
[2023-04-26] MEDS: hydrALAZINE HCL 50 MG TABLET (FP) PO SCH ×3 (05:57→22:31)
[2023-04-26] MEDS: FUROSEMIDE 40 MG/4 ML INJECTABLE VIAL IVPUSH SCH ×2 (05:57→14:16)
[2023-04-26] MEDS: LEVALBUTEROL HCL 0.63 MG/3 ML VIAL.NEB. IH SCH ×3 (08:42→20:05)
[2023-04-26] MEDS: IPRATROPIUM BR 0.02% 0.5 MG/2.5 ML VIAL.NEB. NEB SCH ×4 (08:44→20:05)
[2023-04-26 09:07] LABS: BASO % 0.7 % (0-2.0); EOS % 0.3 % (0-4.5); HEMATOCRIT 36.4 % (35.4-49); HEMOGLOBIN 11.3 GM/dL (11.7-16.9); LYMPH % 12.4 % (8-40); MCH 24.9 pg (25.7-33.7); MEAN CELL VOLUME 80.3 fl (80-96); MEAN PLT VOLUME 9.7 fl (7.5-11.1); MONO % 12.1 % (3.8-10.2); NEUT % 74.5 % (42.8-82.8); PLATELET COUNT 193 10^3/uL (134-434); RBC 4.53 M/mm3 (4.00-5.60); RDW 15.9 % (11.9-15.9); WHITE BLOOD COUNT 9.4 K/mm3 (4.0-10.0)
[2023-04-26 09:18] LABS: POTASSIUM 4.1 mmol/L (3.5-5.1)
[2023-04-26 09:27] LABS: ALBUMIN 3.2 g/dl (3.4-5.0); CALCIUM 10.3 mg/dL (8.5-10.1)
[2023-04-26 09:28] LABS: BLOOD UREA NITROGEN 37.2 mg/dL (7-18)
[2023-04-26 09:30] LABS: CREATININE 2.7 mg/dL (0.55-1.3); PHOSPHOROUS 2.6 mg/dL (2.5-4.9)
[2023-04-26 09:32] LABS: BILIRUBIN,TOTAL 0.4 mg/dL (0.2-1); TOT PROT 6.7 g/dl (6.4-8.2)
[2023-04-26] MEDS: predniSONE 20 MG TABLET (UD) PO SCH (09:44)
[2023-04-26] MEDS: HEPARIN NA (PORCINE) 5,000 UNITS/ML 1ML VIAL SQ SCH ×2 (09:44→22:32)
[2023-04-26] MEDS: ISOSORBIDE MONONITRATE 30 MG TAB.SR.24H (FP) PO SCH (09:45)
[2023-04-26] MEDS: ASPIRIN 81 MG CHEWABLE TABLETS PO SCH (09:45)
[2023-04-26] MEDS: NIFEdipine E.R. 30 MG TABLET PO SCH ×2 (09:45→22:54)
[2023-04-26] MEDS: DOLUTEGRAVIR SODIUM 50 MG TABLET (NON-FORMULARY) PO SCH ×2 (09:45→22:36)
[2023-04-26] MEDS: lamiVUDine 150 MG TABLET PO SCH (09:55)
[2023-04-26] MEDS: MYCOPHENOLATE MOFETIL 500 MG TABLET PO SCH ×2 (09:55→22:40)
[2023-04-26] MEDS: TACROLIMUS PO SCH ×2 (09:55→23:04)
[2023-04-26] MEDS: ABACAVIR SULFATE 300 MG TABLET PO SCH (09:56)
[2023-04-26] MEDS ORDERED: AZITHROMYCIN IVPB 250 MG in DEXTROSE 5%-WATER - 250 ML IVPB SCH (10:00)
[2023-04-26] MEDS: guaiFENesin 200 MG/10 ML 10 ML UNIT-DOSE CUPS PO SCH ×2 (12:40→22:34)
[2023-04-26] MEDS: CEFTRIAXONE 1 GM in DEXTROSE 5%-WATER - 50 ML IVPB SCH (12:40)
[2023-04-26] MEDS: TAMSULOSIN HCL 0.4 MG CAP PO SCH (22:34)
[2023-04-26] MEDS: CYCLOBENZAPRINE HCL 10 MG TABLET (FP) PO PRN (23:16)
[2023-04-26] MEDS: MELATONIN 5 MG TABLETS PO PRN (23:17)
[2023-04-27] MEDS: NIFEdipine E.R. 30 MG TABLET PO SCH ×3 (01:16→22:56)
[2023-04-27] MEDS: TAMSULOSIN HCL 0.4 MG CAP PO SCH ×2 (01:18→22:57)
[2023-04-27] MEDS: FUROSEMIDE 40 MG/4 ML INJECTABLE VIAL IVPUSH SCH (06:42)
[2023-04-27] MEDS: hydrALAZINE HCL 50 MG TABLET (FP) PO SCH ×3 (06:43→22:57)
[2023-04-27] MEDS: guaiFENesin 200 MG/10 ML 10 ML UNIT-DOSE CUPS PO SCH (06:44)
[2023-04-27 08:22] LABS: BASO % 0.4 % (0-2.0); EOS % 0.3 % (0-4.5); HEMATOCRIT 33.8 % (35.4-49); HEMOGLOBIN 10.7 GM/dL (11.7-16.9); LYMPH % 22.8 % (8-40); MCH 25.1 pg (25.7-33.7); MCHC 31.7 g/dl (32.0-35.9); MEAN CELL VOLUME 79.1 fl (80-96); MONO % 14.1 % (3.8-10.2); NEUT % 62.4 % (42.8-82.8); PLATELET COUNT 214 10^3/uL (134-434); RBC 4.27 M/mm3 (4.00-5.60); RDW 15.3 % (11.9-15.9); WHITE BLOOD COUNT 8.4 K/mm3 (4.0-10.0)
[2023-04-27 08:37] LABS: ALBUMIN 2.9 g/dl (3.4-5.0); CALCIUM 9.9 mg/dL (8.5-10.1)
[2023-04-27 08:38] LABS: BLOOD UREA NITROGEN 44.9 mg/dL (7-18); MAGNESIUM 1.9 mg/dL (1.8-2.4)
[2023-04-27 08:40] LABS: PHOSPHOROUS 3.5 mg/dL (2.5-4.9)
[2023-04-27 08:41] LABS: CREATININE 3.1 mg/dL (0.55-1.3)
[2023-04-27 08:42] LABS: BILIRUBIN,TOTAL 0.2 mg/dL (0.2-1); TOT PROT 5.8 g/dl (6.4-8.2)
[2023-04-27] MEDS: LEVALBUTEROL HCL 0.63 MG/3 ML VIAL.NEB. IH SCH ×3 (09:20→20:25)
[2023-04-27] MEDS: IPRATROPIUM BR 0.02% 0.5 MG/2.5 ML VIAL.NEB. NEB SCH ×4 (09:20→20:25)
[2023-04-27] MEDS: CEFTRIAXONE 1 GM in DEXTROSE 5%-WATER - 50 ML IVPB SCH (10:24)
[2023-04-27] MEDS: ASPIRIN COATED 81 MG TABLET.EC PO SCH (10:24)
[2023-04-27] MEDS: HEPARIN NA (PORCINE) 5,000 UNITS/ML 1ML VIAL SQ SCH ×2 (10:24→22:57)
[2023-04-27] MEDS: predniSONE 20 MG TABLET (UD) PO SCH (10:24)
[2023-04-27] MEDS: ISOSORBIDE MONONITRATE 30 MG TAB.SR.24H (FP) PO SCH (10:24)
[2023-04-27] MEDS: DOLUTEGRAVIR SODIUM 50 MG TABLET (NON-FORMULARY) PO SCH ×2 (10:25→22:57)
[2023-04-27] MEDS: lamiVUDine 150 MG TABLET PO SCH (10:25)
[2023-04-27] MEDS: TACROLIMUS PO SCH ×2 (10:26→22:57)
[2023-04-27] MEDS: MYCOPHENOLATE MOFETIL 500 MG TABLET PO SCH ×2 (10:26→22:57)
[2023-04-27] MEDS: ABACAVIR SULFATE 300 MG TABLET PO SCH (10:26)
[2023-04-27] MEDS: CYCLOBENZAPRINE HCL 10 MG TABLET (FP) PO PRN ×2 (10:42→23:47)
[2023-04-27] MEDS: guaiFENesin/CODEINE 5 ML UNIT-DOSE CUPS PO SCH ×3 (16:18→22:57)
[2023-04-27] MEDS: MELATONIN 5 MG TABLETS PO PRN (22:57)
[2023-04-28] MEDS ORDERED: DOCUSATE SODIUM 100 MG CAPSULE (FP) PO ONE (01:00)
[2023-04-28] MEDS: hydrALAZINE HCL 50 MG TABLET (FP) PO SCH ×3 (05:52→21:58)
[2023-04-28 08:14] LABS: HEMATOCRIT 33.5 % (35.4-49); HEMOGLOBIN 10.6 GM/dL (11.7-16.9); MCH 25.1 pg (25.7-33.7); MCHC 31.6 g/dl (32.0-35.9); MEAN CELL VOLUME 79.3 fl (80-96); MEAN PLT VOLUME 9.3 fl (7.5-11.1); PLATELET COUNT 221 10^3/uL (134-434); RBC 4.22 M/mm3 (4.00-5.60); RDW 15.5 % (11.9-15.9); WHITE BLOOD COUNT 9.6 K/mm3 (4.0-10.0)
[2023-04-28 08:24] LABS: POTASSIUM 3.9 mmol/L (3.5-5.1)
[2023-04-28] MEDS: LEVALBUTEROL HCL 0.63 MG/3 ML VIAL.NEB. IH SCH ×3 (08:30→20:55)
[2023-04-28] MEDS: IPRATROPIUM BR 0.02% 0.5 MG/2.5 ML VIAL.NEB. NEB SCH ×4 (08:30→20:55)
[2023-04-28 08:34] LABS: ALBUMIN 2.9 g/dl (3.4-5.0); BLOOD UREA NITROGEN 52.2 mg/dL (7-18); MAGNESIUM 1.7 mg/dL (1.8-2.4)
[2023-04-28 08:37] LABS: CREATININE 3.1 mg/dL (0.55-1.3)
[2023-04-28 08:38] LABS: TOT PROT 5.9 g/dl (6.4-8.2)
[2023-04-28] MEDS ORDERED: FUROSEMIDE 40 MG/4 ML INJECTABLE VIAL IVPUSH SCH (10:00)
[2023-04-28] MEDS: predniSONE 20 MG TABLET (UD) PO SCH (10:24)
[2023-04-28] MEDS: guaiFENesin/CODEINE 5 ML UNIT-DOSE CUPS PO SCH ×4 (10:24→21:58)
[2023-04-28] MEDS: CEFTRIAXONE 1 GM in DEXTROSE 5%-WATER - 50 ML IVPB SCH (10:24)
[2023-04-28] MEDS: HEPARIN NA (PORCINE) 5,000 UNITS/ML 1ML VIAL SQ SCH ×2 (10:25→21:59)
[2023-04-28] MEDS: ASPIRIN COATED 81 MG TABLET.EC PO SCH (10:25)
[2023-04-28] MEDS: ISOSORBIDE MONONITRATE 30 MG TAB.SR.24H (FP) PO SCH (10:25)
[2023-04-28] MEDS: NIFEdipine E.R. 30 MG TABLET PO SCH ×2 (10:25→22:00)
[2023-04-28] MEDS: lamiVUDine 150 MG TABLET PO SCH (10:26)
[2023-04-28] MEDS: TACROLIMUS PO SCH ×2 (10:27→21:58)
[2023-04-28] MEDS: ABACAVIR SULFATE 300 MG TABLET PO SCH (10:29)
[2023-04-28] MEDS: DOLUTEGRAVIR SODIUM 50 MG TABLET (NON-FORMULARY) PO SCH ×2 (10:29→22:09)
[2023-04-28] MEDS: MYCOPHENOLATE MOFETIL 500 MG TABLET PO SCH ×2 (10:31→21:58)
[2023-04-28] MEDS: SENNOSIDES 8.6MG TABLET (FP) PO SCH ×2 (13:05→21:58)
[2023-04-28] MEDS: DOCUSATE SODIUM 100 MG CAPSULE (FP) PO SCH ×2 (13:05→21:59)
[2023-04-28] MEDS: TAMSULOSIN HCL 0.4 MG CAP PO SCH (22:00)
[2023-04-29] MEDS: hydrALAZINE HCL 50 MG TABLET (FP) PO SCH ×3 (06:07→21:37)
[2023-04-29 07:58] LABS: POTASSIUM 4.3 mmol/L (3.5-5.1)
[2023-04-29 08:00] LABS: BLOOD UREA NITROGEN 57.2 mg/dL (7-18); CALCIUM 10.2 mg/dL (8.5-10.1)
[2023-04-29 08:01] LABS: ALBUMIN 3.4 g/dl (3.4-5.0); MAGNESIUM 1.9 mg/dL (1.8-2.4)
[2023-04-29 08:03] LABS: PHOSPHOROUS 3.6 mg/dL (2.5-4.9)
[2023-04-29 08:05] LABS: TOT PROT 6.7 g/dl (6.4-8.2)
[2023-04-29 08:13] LABS: BILIRUBIN,TOTAL 0.3 mg/dL (0.2-1)
[2023-04-29 08:16] LABS: BASO % 0.8 % (0-2.0); EOS % 0.1 % (0-4.5); HEMATOCRIT 36.1 % (35.4-49); HEMOGLOBIN 11.2 GM/dL (11.7-16.9); LYMPH % 23.5 % (8-40); MCH 24.9 pg (25.7-33.7); MEAN CELL VOLUME 80.3 fl (80-96); MEAN PLT VOLUME 9.3 fl (7.5-11.1); MONO % 7.2 % (3.8-10.2); NEUT % 68.4 % (42.8-82.8); PLATELET COUNT 240 10^3/uL (134-434); RBC 4.49 M/mm3 (4.00-5.60); RDW 15.5 % (11.9-15.9); WHITE BLOOD COUNT 11.7 K/mm3 (4.0-10.0)
[2023-04-29] MEDS: LEVALBUTEROL HCL 0.63 MG/3 ML VIAL.NEB. IH SCH ×3 (08:30→20:03)
[2023-04-29] MEDS: IPRATROPIUM BR 0.02% 0.5 MG/2.5 ML VIAL.NEB. NEB SCH ×4 (08:30→20:06)
[2023-04-29] MEDS: guaiFENesin/CODEINE 5 ML UNIT-DOSE CUPS PO SCH ×4 (10:25→21:37)
[2023-04-29] MEDS: CEFTRIAXONE 1 GM in DEXTROSE 5%-WATER - 50 ML IVPB SCH (10:25)
[2023-04-29] MEDS: lamiVUDine 150 MG TABLET PO SCH (10:26)
[2023-04-29] MEDS: HEPARIN NA (PORCINE) 5,000 UNITS/ML 1ML VIAL SQ SCH ×2 (10:26→21:37)
[2023-04-29] MEDS: DOLUTEGRAVIR SODIUM 50 MG TABLET (NON-FORMULARY) PO SCH ×2 (10:26→21:36)
[2023-04-29] MEDS: predniSONE 20 MG TABLET (UD) PO SCH (10:27)
[2023-04-29] MEDS: ASPIRIN COATED 81 MG TABLET.EC PO SCH (10:27)
[2023-04-29] MEDS: DOCUSATE SODIUM 100 MG CAPSULE (FP) PO SCH ×2 (10:27→21:38)
[2023-04-29] MEDS: ISOSORBIDE MONONITRATE 30 MG TAB.SR.24H (FP) PO SCH (10:27)
[2023-04-29] MEDS: NIFEdipine E.R. 30 MG TABLET PO SCH ×2 (10:27→21:38)
[2023-04-29] MEDS: MAGNESIUM OXIDE 400 MG TABLET (FP) PO SCH ×3 (10:27→21:38)
[2023-04-29] MEDS: TACROLIMUS PO SCH ×2 (10:28→21:36)
[2023-04-29] MEDS: ABACAVIR SULFATE 300 MG TABLET PO SCH (10:30)
[2023-04-29] MEDS: SENNOSIDES 8.6MG TABLET (FP) PO SCH ×2 (10:30→21:36)
[2023-04-29] MEDS: MYCOPHENOLATE MOFETIL 500 MG TABLET PO SCH ×2 (10:30→21:37)
[2023-04-29] MEDS ORDERED: BISACODYL 5 MG TABLET.DR (FP) PO PRN (13:06)
[2023-04-29] MEDS: POLYETHYLENE GLYCOL (HEALTHYLAX) 3350 17 GM PACKET PO SCH ×2 (14:09→21:38)
[2023-04-29] MEDS: FUROSEMIDE 40 MG TABLET (FP) PO SCH (14:09)
[2023-04-29] MEDS ORDERED: predniSONE 5 MG TABLET (UD) PO SCH (18:25)
[2023-04-29] MEDS: MELATONIN 5 MG TABLETS PO PRN (21:36)
[2023-04-29] MEDS: TAMSULOSIN HCL 0.4 MG CAP PO SCH (21:38)
[2023-04-29 22:42] VITALS: BMI 24.8
[2023-04-30] MEDS: hydrALAZINE HCL 50 MG TABLET (FP) PO SCH ×2 (06:29→14:14)
[2023-04-30] MEDS: HEPARIN NA (PORCINE) 5,000 UNITS/ML 1ML VIAL SQ SCH ×2 (06:29→14:14)
[2023-04-30 07:43] LABS: BASO % 0.8 % (0-2.0); EOS % 0.1 % (0-4.5); HEMATOCRIT 35.3 % (35.4-49); HEMOGLOBIN 11.1 GM/dL (11.7-16.9); LYMPH % 26.6 % (8-40); MCH 24.9 pg (25.7-33.7); MCHC 31.4 g/dl (32.0-35.9); MEAN CELL VOLUME 79.5 fl (80-96); MEAN PLT VOLUME 8.8 fl (7.5-11.1); MONO % 6.6 % (3.8-10.2); NEUT % 65.9 % (42.8-82.8); PLATELET COUNT 257 10^3/uL (134-434); RBC 4.44 M/mm3 (4.00-5.60); RDW 15.3 % (11.9-15.9); WHITE BLOOD COUNT 11.7 K/mm3 (4.0-10.0)
[2023-04-30 08:11] LABS: POTASSIUM 4.6 mmol/L (3.5-5.1)
[2023-04-30 08:18] LABS: ALBUMIN 3.2 g/dl (3.4-5.0); CALCIUM 10.5 mg/dL (8.5-10.1)
[2023-04-30 08:21] LABS: CREATININE 2.9 mg/dL (0.55-1.3); PHOSPHOROUS 3.2 mg/dL (2.5-4.9)
[2023-04-30 08:22] LABS: BILIRUBIN,TOTAL 0.3 mg/dL (0.2-1); TOT PROT 6.6 g/dl (6.4-8.2)
[2023-04-30] MEDS: IPRATROPIUM BR 0.02% 0.5 MG/2.5 ML VIAL.NEB. NEB SCH (08:50)
[2023-04-30] MEDS: LEVALBUTEROL HCL 0.63 MG/3 ML VIAL.NEB. IH SCH (08:50)
[2023-04-30 09:47] VITALS: RESP 18
[2023-04-30] MEDS: POLYETHYLENE GLYCOL (HEALTHYLAX) 3350 17 GM PACKET PO SCH (10:03)
[2023-04-30] MEDS: DOCUSATE SODIUM 100 MG CAPSULE (FP) PO SCH (10:03)
[2023-04-30] MEDS: CEFTRIAXONE 1 GM in DEXTROSE 5%-WATER - 50 ML IVPB SCH (10:03)
[2023-04-30] MEDS: ISOSORBIDE MONONITRATE 30 MG TAB.SR.24H (FP) PO SCH (10:04)
[2023-04-30] MEDS: SENNOSIDES 8.6MG TABLET (FP) PO SCH (10:04)
[2023-04-30] MEDS: MAGNESIUM OXIDE 400 MG TABLET (FP) PO SCH (10:04)
[2023-04-30] MEDS: FUROSEMIDE 40 MG TABLET (FP) PO SCH (10:04)
[2023-04-30] MEDS: guaiFENesin/CODEINE 5 ML UNIT-DOSE CUPS PO SCH ×2 (10:04→14:14)
[2023-04-30] MEDS: NIFEdipine E.R. 30 MG TABLET PO SCH (10:04)
[2023-04-30] MEDS: ASPIRIN COATED 81 MG TABLET.EC PO SCH (10:04)
[2023-04-30] MEDS: TACROLIMUS PO SCH (10:05)
[2023-04-30] MEDS: MYCOPHENOLATE MOFETIL 500 MG TABLET PO SCH (10:05)
[2023-04-30] MEDS: ABACAVIR SULFATE 300 MG TABLET PO SCH (10:06)
[2023-04-30] MEDS: DOLUTEGRAVIR SODIUM 50 MG TABLET (NON-FORMULARY) PO SCH (10:06)
[2023-04-30] MEDS: lamiVUDine 150 MG TABLET PO SCH (10:06)
[2023-04-30 13:55] VITALS: TEMP 97.8
[2023-04-30 14:53] VITALS: BP 143/79; PULSE 80
== END 2023-04-30 18:21 | disposition home health service (06) | DRG 291 ==
LOC: JER 06:05 → JERBED 08:59 → J4W 19:54
PROVIDERS: ADMIT Internal Medicine; ATTEND Internal Medicine
DX: I13.2 Hypertensive heart and chronic kidney disease with heart failure and with stage 5 chronic kidney disease, or end stage renal disease (principal); I50.33 Acute on chronic diastolic (congestive) heart failure; N18.6 End stage renal disease; J18.9 Pneumonia, unspecified organism; J44.1 Chronic obstructive pulmonary disease with (acute) exacerbation; J44.0 Chronic obstructive pulmonary disease with (acute) lower respiratory infection; B20 Human immunodeficiency virus [HIV] disease; Z94.0 Kidney transplant status; F32.A Depression, unspecified; F20.9 Schizophrenia, unspecified; K59.00 Constipation, unspecified; E87.5 Hyperkalemia; Z99.2 Dependence on renal dialysis
CPT/HCPCS: 0241U-QW; 36415; 71045-TC-FY; 80048; 80053; 80061; 80197; 82803; 83036; 83735; 83880; 84100; 84443; 84484; 85025; 85027; 85610; 85730; 87070; 87205; 87899; 93005; 93010; 94640; 94660; 99291; J1644; J7517

== ENCOUNTER 2024-03-10 18:22 | Inpatient (IN) | payer OTHER ==
[2024-03-10 20:01] LABS: BASO % 1.5 % (0-2.0); EOS % 3.2 % (0-4.5); HEMATOCRIT 34.4 % (35.4-49); HEMOGLOBIN 10.8 GM/dL (11.7-16.9); MCH 24.4 pg (25.7-33.7); MCHC 31.5 g/dl (32.0-35.9); MEAN CELL VOLUME 77.6 fl (80-96); MEAN PLT VOLUME 8.2 fl (7.5-11.1); NEUT % 58.3 % (42.8-82.8); PLATELET COUNT 253 10^3/uL (134-434); RBC 4.43 M/mm3 (4.00-5.60); RDW 16.8 % (11.9-15.9); WHITE BLOOD COUNT 8.1 K/mm3 (4.0-10.0)
[2024-03-10 20:09] LABS: INR 0.96 (0.83-1.09); PROTHROMBIN TIME (PATIENT) 11.1 SEC (9.7-13.0)
[2024-03-10 20:12] LABS: ACTIVATED PTT 35.2 SECONDS (25.2-36.5)
[2024-03-10 20:23] LABS: POTASSIUM 4.6 mmol/L (3.5-5.1)
[2024-03-10 20:25] LABS: CALCIUM 9.7 mg/dL (8.5-10.1)
[2024-03-10 20:26] LABS: ALBUMIN 2.5 g/dl (3.4-5.0); BLOOD UREA NITROGEN 72.6 mg/dL (7-18); MAGNESIUM 2.7 mg/dL (1.8-2.4)
[2024-03-10 20:30] LABS: BILIRUBIN,TOTAL 0.4 mg/dL (0.2-1); TOT PROT 6.2 g/dl (6.4-8.2)
[2024-03-10 20:58] LABS: N-TERMINAL BNP 84512.6 pg/ml (5-125)
[2024-03-10] MEDS ORDERED: FUROSEMIDE 40 MG/4 ML INJECTABLE VIAL ONE (21:24)
[2024-03-10] MEDS: FUROSEMIDE 40 MG/4 ML INJECTABLE VIAL IVPUSH ONE (21:50)
[2024-03-10 22:40] LABS: POTASSIUM 4.6 mmol/L (3.5-5.1)
[2024-03-10 22:42] LABS: CALCIUM 9.4 mg/dL (8.5-10.1)
[2024-03-10 22:43] LABS: BLOOD UREA NITROGEN 71.8 mg/dL (7-18)
[2024-03-10 22:46] LABS: CREATININE 3.9 mg/dL (0.55-1.3)
[2024-03-11] MEDS: BUMETANIDE 0.25 MG/1 ML INJ. 10ML MULTI-DOSE VIAL IVPUSH ONE (02:05)
[2024-03-11] MEDS ORDERED: HEPARIN NA (PORCINE) 5,000 UNITS/ML 1ML VIAL ONE ×4 (06:03→22:48)
[2024-03-11] MEDS: HEPARIN NA (PORCINE) 5,000 UNITS/ML 1ML VIAL SQ SCH (06:16)
[2024-03-11 06:53] LABS: BASO % 1.3 % (0-2.0); EOS % 4.5 % (0-4.5); HEMATOCRIT 34.1 % (35.4-49); HEMOGLOBIN 10.4 GM/dL (11.7-16.9); MCH 24.2 pg (25.7-33.7); MCHC 30.6 g/dl (32.0-35.9); MEAN CELL VOLUME 79.2 fl (80-96); MEAN PLT VOLUME 8.3 fl (7.5-11.1); MONO % 8.8 % (3.8-10.2); NEUT % 55.4 % (42.8-82.8); PLATELET COUNT 242 10^3/uL (134-434); POTASSIUM 4.3 mmol/L (3.5-5.1); RDW 16.5 % (11.9-15.9); WHITE BLOOD COUNT 7.6 K/mm3 (4.0-10.0)
[2024-03-11 06:55] LABS: CALCIUM 9.4 mg/dL (8.5-10.1)
[2024-03-11 06:56] LABS: ALBUMIN 2.4 g/dl (3.4-5.0); BLOOD UREA NITROGEN 72.8 mg/dL (7-18); MAGNESIUM 2.6 mg/dL (1.8-2.4)
[2024-03-11 06:59] LABS: CREATININE 4.1 mg/dL (0.55-1.3); PHOSPHOROUS 4.5 mg/dL (2.5-4.9)
[2024-03-11 07:00] LABS: BILIRUBIN,TOTAL 0.5 mg/dL (0.2-1)
[2024-03-11] MEDS ORDERED: hydrALAZINE HCL 50 MG TABLET (FP) ONE ×2 (07:28→14:26)
[2024-03-11] MEDS ORDERED: TAMSULOSIN HCL 0.4 MG CAP ONE (07:29)
[2024-03-11] MEDS: hydrALAZINE HCL 50 MG TABLET (FP) PO SCH (07:45)
[2024-03-11] MEDS ORDERED: CYCLOBENZAPRINE HCL 10 MG TABLET (FP) ONE (08:34)
[2024-03-11] MEDS: BUMETANIDE INJECTION 1 MG/4 ML VIAL IVPUSH SCH ×2 (08:38→11:42)
[2024-03-11] MEDS: CYCLOBENZAPRINE HCL 10 MG TABLET (FP) PO PRN (08:38)
[2024-03-11] MEDS: TAMSULOSIN HCL 0.4 MG CAP PO SCH (08:40)
[2024-03-11] MEDS ORDERED: TACROLIMUS ANHYDROUS 5 MG CAPSULE PO SCH ×2 (10:00→17:32)
[2024-03-11] MEDS ORDERED: CHOLECALCIFEROL (VIT D3) 1,000 UNIT (25 MCG) TABLET ONE (11:02)
[2024-03-11] MEDS ORDERED: PANTOPRAZOLE 40 MG TABLET PO ONE (11:02)
[2024-03-11] MEDS: lamiVUDine 150 MG TABLET PO SCH (11:20)
[2024-03-11] MEDS: ISOSORBIDE MONONITRATE 30 MG TAB.SR.24H (FP) PO SCH (11:20)
[2024-03-11] MEDS: CINACALCET HCL 30 MG TAB (FP) PO SCH (11:20)
[2024-03-11] MEDS: CHOLECALCIFEROL (VIT D3) 1,000 UNIT (25 MCG) TABLET PO SCH (11:20)
[2024-03-11] MEDS: predniSONE 5 MG TABLET (UD) PO SCH (11:20)
[2024-03-11] MEDS: MYCOPHENOLATE MOFETIL 500 MG TABLET PO SCH (11:20)
[2024-03-11] MEDS: DOLUTEGRAVIR SODIUM 50 MG TABLET (NON-FORMULARY) PO SCH (11:20)
[2024-03-11] MEDS: TACROLIMUS PO SCH (11:20)
[2024-03-11] MEDS: ABACAVIR SULFATE 300 MG TABLET PO SCH (11:20)
[2024-03-11] MEDS: NIFEdipine E.R. 30 MG TABLET PO SCH (11:20)
[2024-03-11] MEDS: DOCUSATE SODIUM 100 MG CAPSULE (FP) PO PRN (11:20)
[2024-03-11] MEDS: PANTOPRAZOLE 40 MG TABLET PO SCH (11:20)
[2024-03-11] MEDS ORDERED: FUROSEMIDE 40 MG/4 ML INJECTABLE VIAL ONE (14:26)
[2024-03-11] MEDS: FUROSEMIDE 40 MG/4 ML INJECTABLE VIAL IVPUSH SCH (14:36)
[2024-03-11] MEDS ORDERED: ACETAMINOPHEN 325 MG TABLET (FP) PO PRN (16:02)
[2024-03-11] MEDS: TACROLIMUS ANHYDROUS 5 MG CAPSULE PO SCH (23:06)
[2024-03-12 07:12] LABS: BASO % 0.9 % (0-2.0); EOS % 2.8 % (0-4.5); HEMATOCRIT 30.8 % (35.4-49); HEMOGLOBIN 9.9 GM/dL (11.7-16.9); LYMPH % 29.2 % (8-40); MCH 24.6 pg (25.7-33.7); MCHC 32.1 g/dl (32.0-35.9); MEAN CELL VOLUME 76.5 fl (80-96); MEAN PLT VOLUME 8.2 fl (7.5-11.1); MONO % 9.3 % (3.8-10.2); NEUT % 57.8 % (42.8-82.8); PLATELET COUNT 227 10^3/uL (134-434); RBC 4.02 M/mm3 (4.00-5.60); RDW 16.1 % (11.9-15.9); WHITE BLOOD COUNT 7.6 K/mm3 (4.0-10.0)
[2024-03-12 07:33] LABS: POTASSIUM 3.8 mmol/L (3.5-5.1)
[2024-03-12 07:41] LABS: CALCIUM 8.4 mg/dL (8.5-10.1)
[2024-03-12 07:42] LABS: ALBUMIN 2.3 g/dl (3.4-5.0); BLOOD UREA NITROGEN 74.4 mg/dL (7-18); MAGNESIUM 2.1 mg/dL (1.8-2.4)
[2024-03-12 07:45] LABS: CREATININE 4.3 mg/dL (0.55-1.3)
[2024-03-12 07:46] LABS: BILIRUBIN,TOTAL 0.5 mg/dL (0.2-1); TOT PROT 5.8 g/dl (6.4-8.2)
[2024-03-12 14:07] VITALS: BMI 26.0
[2024-03-12] MEDS: TACROLIMUS ANHYDROUS 5 MG CAPSULE PO SCH (23:34)
[2024-03-12] MEDS: BUDESONIDE/FORMETEROL FUMARATE 160/4.5 mcg INHALER IH SCH (23:39)
[2024-03-12] MEDS: ALBUTEROL SO4 HFA INHALER IH PRN (23:49)
[2024-03-12] MEDS: SENNOSIDES 8.6MG TABLET (FP) PO PRN (23:49)
[2024-03-13 07:48] LABS: POTASSIUM 4.1 mmol/L (3.5-5.1)
[2024-03-13 07:51] LABS: BASO % 1.4 % (0-2.0); EOS % 2.5 % (0-4.5); HEMATOCRIT 31.1 % (35.4-49); HEMOGLOBIN 9.9 GM/dL (11.7-16.9); LYMPH % 28.8 % (8-40); MCH 24.4 pg (25.7-33.7); MCHC 31.7 g/dl (32.0-35.9); MEAN CELL VOLUME 77.1 fl (80-96); MEAN PLT VOLUME 8.9 fl (7.5-11.1); MONO % 8.3 % (3.8-10.2); PLATELET COUNT 245 10^3/uL (134-434); RBC 4.03 M/mm3 (4.00-5.60); RDW 16.1 % (11.9-15.9); WHITE BLOOD COUNT 8.3 K/mm3 (4.0-10.0)
[2024-03-13 08:00] LABS: CALCIUM 8.1 mg/dL (8.5-10.1)
[2024-03-13 08:02] LABS: ALBUMIN 2.4 g/dl (3.4-5.0); BLOOD UREA NITROGEN 77.5 mg/dL (7-18); MAGNESIUM 2.2 mg/dL (1.8-2.4)
[2024-03-13 08:05] LABS: CREATININE 4.5 mg/dL (0.55-1.3); PHOSPHOROUS 4.3 mg/dL (2.5-4.9)
[2024-03-13 08:06] LABS: BILIRUBIN,TOTAL 0.4 mg/dL (0.2-1); TOT PROT 5.8 g/dl (6.4-8.2)
[2024-03-13] MEDS: FUROSEMIDE 40 MG/4 ML INJECTABLE VIAL IVPUSH SCH (09:05)
[2024-03-13] MEDS: TACROLIMUS ANHYDROUS 5 MG CAPSULE PO SCH ×2 (15:59→21:36)
[2024-03-13] MEDS: MAGNESIUM HYDROX 2400MG/30ML ORAL SUSPENSION 30 ML CUP PO ONE (17:15)
[2024-03-13] MEDS: CINACALCET HCL 30 MG TAB (FP) PO SCH (21:35)
[2024-03-13] MEDS: SODIUM BICARBONATE 650 MG TABLET PO SCH (21:36)
[2024-03-13] MEDS: MELATONIN 5 MG TABLETS PO PRN (21:51)
[2024-03-14 07:57] LABS: BASO % 1.1 % (0-2.0); EOS % 3.3 % (0-4.5); HEMATOCRIT 31.5 % (35.4-49); LYMPH % 28.8 % (8-40); MCH 24.3 pg (25.7-33.7); MCHC 31.7 g/dl (32.0-35.9); MEAN CELL VOLUME 76.6 fl (80-96); MEAN PLT VOLUME 8.7 fl (7.5-11.1); MONO % 8.3 % (3.8-10.2); NEUT % 58.5 % (42.8-82.8); PLATELET COUNT 244 10^3/uL (134-434); RBC 4.11 M/mm3 (4.00-5.60); RDW 15.9 % (11.9-15.9); WHITE BLOOD COUNT 7.2 K/mm3 (4.0-10.0)
[2024-03-14 08:22] LABS: ALBUMIN 2.3 g/dl (3.4-5.0)
[2024-03-14 08:26] LABS: CREATININE 4.6 mg/dL (0.55-1.3); PHOSPHOROUS 4.1 mg/dL (2.5-4.9)
[2024-03-14 08:28] LABS: BILIRUBIN,TOTAL 0.3 mg/dL (0.2-1); TOT PROT 5.8 g/dl (6.4-8.2)
[2024-03-14 08:30] LABS: CALCIUM 7.7 mg/dL (8.5-10.1); MAGNESIUM 2.4 mg/dL (1.8-2.4)
[2024-03-14] MEDS ORDERED: FUROSEMIDE 40 MG/4 ML INJECTABLE VIAL IVPUSH SCH (12:36)
[2024-03-15 07:26] LABS: BASO % 0.9 % (0-2.0); EOS % 3.5 % (0-4.5); HEMATOCRIT 30.8 % (35.4-49); LYMPH % 32.2 % (8-40); MCH 24.5 pg (25.7-33.7); MCHC 32.4 g/dl (32.0-35.9); MEAN CELL VOLUME 75.7 fl (80-96); MEAN PLT VOLUME 8.6 fl (7.5-11.1); MONO % 7.8 % (3.8-10.2); NEUT % 55.6 % (42.8-82.8); PLATELET COUNT 253 10^3/uL (134-434); RBC 4.07 M/mm3 (4.00-5.60); RDW 16.3 % (11.9-15.9); WHITE BLOOD COUNT 7.5 K/mm3 (4.0-10.0)
[2024-03-15 07:51] LABS: ALBUMIN 2.3 g/dl (3.4-5.0)
[2024-03-15 07:52] LABS: BLOOD UREA NITROGEN 72.5 mg/dL (7-18); MAGNESIUM 2.4 mg/dL (1.8-2.4)
[2024-03-15 07:56] LABS: CREATININE 4.8 mg/dL (0.55-1.3); PHOSPHOROUS 4.3 mg/dL (2.5-4.9)
[2024-03-15 07:57] LABS: BILIRUBIN,TOTAL 0.2 mg/dL (0.2-1); TOT PROT 5.7 g/dl (6.4-8.2)
[2024-03-15] MEDS: REGADENOSON 0.4 MG/5 ML PRE-FILLED SYRINGE IVPUSH ONE (10:08)
[2024-03-16 08:42] LABS: BASO % 1.3 % (0-2.0); EOS % 2.6 % (0-4.5); HEMATOCRIT 29.9 % (35.4-49); HEMOGLOBIN 9.5 GM/dL (11.7-16.9); LYMPH % 31.4 % (8-40); MCH 24.5 pg (25.7-33.7); MCHC 31.9 g/dl (32.0-35.9); MEAN CELL VOLUME 76.8 fl (80-96); MONO % 7.7 % (3.8-10.2); PLATELET COUNT 231 10^3/uL (134-434); RBC 3.89 M/mm3 (4.00-5.60); RDW 15.9 % (11.9-15.9); WHITE BLOOD COUNT 7.7 K/mm3 (4.0-10.0)
[2024-03-16 09:12] LABS: POTASSIUM 4.2 mmol/L (3.5-5.1)
[2024-03-16 10:03] LABS: BLOOD UREA NITROGEN 70.5 mg/dL (7-18); CALCIUM 7.8 mg/dL (8.5-10.1)
[2024-03-16 10:04] LABS: ALBUMIN 2.3 g/dl (3.4-5.0); MAGNESIUM 2.5 mg/dL (1.8-2.4)
[2024-03-16 10:07] LABS: CREATININE 4.5 mg/dL (0.55-1.3)
[2024-03-16 10:08] LABS: BILIRUBIN,TOTAL 0.2 mg/dL (0.2-1); TOT PROT 5.6 g/dl (6.4-8.2)
[2024-03-16] MEDS ORDERED: REGADENOSON 0.4 MG/5 ML PRE-FILLED SYRINGE IVPUSH ONE (12:02)
[2024-03-16] MEDS ORDERED: AMINOPHYLLINE 250 MG/10 ML VIAL ONE (12:33)
[2024-03-16] MEDS: REGADENOSON 0.4 MG/5 ML PRE-FILLED SYRINGE IVPUSH ONE (12:42)
[2024-03-16] MEDS: AMINOPHYLLINE 250 MG/10 ML VIAL IVPUSH ONE (12:42)
[2024-03-16 21:43] VITALS: BP 150/86; PULSE 80; RESP 17; TEMP 97.5
== END 2024-03-16 22:02 | disposition short-term general hospital (02) | DRG 291 ==
LOC: JER 18:22 → JERBED 21:25 → J4W 03-12 04:43
PROVIDERS: ADMIT Internal Medicine; ATTEND Internal Medicine
DX: I13.2 Hypertensive heart and chronic kidney disease with heart failure and with stage 5 chronic kidney disease, or end stage renal disease (principal); I50.21 Acute systolic (congestive) heart failure; T86.11 Kidney transplant rejection; N17.9 Acute kidney failure, unspecified; Z21 Asymptomatic human immunodeficiency virus [HIV] infection status; F17.210 Nicotine dependence, cigarettes, uncomplicated; I50.32 Chronic diastolic (congestive) heart failure; N40.0 Benign prostatic hyperplasia without lower urinary tract symptoms; E87.70 Fluid overload, unspecified; E87.5 Hyperkalemia; N18.9 Chronic kidney disease, unspecified
CPT/HCPCS: 0241U-QW; 36415; 71045-TC-FY; 78452-TC; 80048; 80053; 80180; 80197; 82310; 83735; 83880; 83970; 84100; 84484; 85025; 85610; 85730; 86850; 86900; 86901; 87635; 93005; 93010; 93017; 93306-TC; 93970-TC; 93975; 97116-GP; 97161-GP; 99285-25; A9502; J1644; J2785; J7517

== ENCOUNTER 2024-04-20 07:21 | Inpatient (IN) | payer OTHER ==
[2024-04-20 07:44] VITALS: BMI 26.4
[2024-04-20 10:14] LABS: ALBUMIN 2.2 g/dl (3.4-5.0); ANION GAP 7 mmol/L (4-13); BLOOD UREA NITROGEN 42.6 mg/dL (7-18); CALCIUM 8.8 mg/dL (8.5-10.1); CHLORIDE 113 mmol/L (98-107); CO2 20 mmol/L (21-32); GLUCOSE,RANDOM 96 mg/dL (74-106); MAGNESIUM 2.6 mg/dL (1.8-2.4); POTASSIUM 6.4 mmol/L (3.5-5.1); SODIUM 139 mmol/L (136-145)
[2024-04-20 10:16] LABS: SGOT/AST 63 U/L (15-37); SGPT/ALT 26 U/L (13-61)
[2024-04-20 10:19] LABS: ALK PHOS 104 U/L (45-117); BILIRUBIN,TOTAL 0.4 mg/dL (0.2-1); TOT PROT 6.6 g/dl (6.4-8.2)
[2024-04-20 10:46] LABS: N-TERMINAL BNP 97268.1 pg/ml (5-125)
[2024-04-20 10:52] LABS: VENOUS BASE EXCESS -2.5 mmol/L (-2-2); VENOUS O2 SATURATION 48.8 % (70-80); VENOUS PH 7.272 (7.310-7.410)
[2024-04-20 10:54] LABS: BASO % 0.8 % (0-2.0); EOS % 1.9 % (0-4.5); HEMATOCRIT 32.2 % (35.4-49); HEMOGLOBIN 10.2 GM/dL (11.7-16.9); LYMPH % 11.6 % (8-40); MCH 24.5 pg (25.7-33.7); MCHC 31.7 g/dl (32.0-35.9); MEAN CELL VOLUME 77.5 fl (80-96); MEAN PLT VOLUME 7.9 fl (7.5-11.1); MONO % 7.9 % (3.8-10.2); NEUT % 77.8 % (42.8-82.8); PLATELET COUNT 241 10^3/uL (134-434); RBC 4.15 M/mm3 (4.00-5.60); RDW 16.7 % (11.9-15.9); WHITE BLOOD COUNT 9.3 K/mm3 (4.0-10.0)
[2024-04-20 11:01] LABS: INR 0.97 (0.83-1.09)
[2024-04-20 11:04] LABS: ACTIVATED PTT 30.6 SECONDS (25.2-36.5)
[2024-04-20 11:11] LABS: EPI CELLS 8 /uL (0-25.1); HYALINE CASTS 4 /uL (0-3.1); PH,URINE 6.5 (5.0-8.0); URINE APPEARANCE CLEAR; URINE BACTERIA 35 /uL (0-1359); URINE BILIRUBIN NEGATIVE (NEGATIVE); URINE COLOR YELLOW; URINE GLUCOSE (UA) NEGATIVE (NEGATIVE); URINE KETONE NEGATIVE (NEGATIVE); URINE LEUK ESTERASE 1+ (NEGATIVE); URINE NITRITE NEGATIVE (NEGATIVE); URINE PROTEIN 4+ (NEGATIVE); URINE RBC 72 /uL (0-23.9); URINE UROBILINOGEN 0.2 mg/dL (0.2-1.0); URINE WBC 612 /uL (0-25.8)
[2024-04-20 11:20] LABS: POTASSIUM 4.3 mmol/L (3.5-5.1)
[2024-04-20 11:22] LABS: CALCIUM 8.9 mg/dL (8.5-10.1)
[2024-04-20 11:23] LABS: ALBUMIN 2.1 g/dl (3.4-5.0); BLOOD UREA NITROGEN 44.2 mg/dL (7-18)
[2024-04-20 11:28] LABS: BILIRUBIN,TOTAL 0.2 mg/dL (0.2-1); TOT PROT 5.8 g/dl (6.4-8.2)
[2024-04-20] MEDS ORDERED: FUROSEMIDE 40 MG/4 ML INJECTABLE VIAL ONE ×3 (11:37→20:14)
[2024-04-20] MEDS ORDERED: ALBUTEROL SO4 HFA INHALER IH PRN (13:12)
[2024-04-20] MEDS ORDERED: ISOSORBIDE MONONITRATE 30 MG TAB.SR.24H (FP) PO ONE (13:47)
[2024-04-20] MEDS ORDERED: hydrALAZINE HCL 50 MG TABLET (FP) ONE ×2 (13:47→22:37)
[2024-04-20] MEDS: hydrALAZINE HCL 50 MG TABLET (FP) PO SCH (13:49)
[2024-04-20] MEDS: ISOSORBIDE MONONITRATE 30 MG TAB.SR.24H (FP) PO SCH (13:49)
[2024-04-20] MEDS: FUROSEMIDE 40 MG/4 ML INJECTABLE VIAL IVPUSH ONE ×3 (14:37→20:23)
[2024-04-20] MEDS: TACROLIMUS ANHYDROUS 5 MG CAPSULE PO SCH ×2 (15:12→22:54)
[2024-04-20] MEDS: FUROSEMIDE 40 MG TABLET (FP) PO ONE (15:12)
[2024-04-20] MEDS: MYCOPHENOLATE MOFETIL 500 MG TABLET PO SCH (15:12)
[2024-04-20 15:31] LABS: VENOUS BASE EXCESS -4.9 mmol/L (-2-2); VENOUS O2 SATURATION 57.6 % (70-80); VENOUS PCO2 44.7 mmHg (38-52); VENOUS PH 7.298 (7.310-7.410)
[2024-04-20] MEDS ORDERED: NIFEdipine E.R. 30 MG TABLET PO ONE ×2 (15:33→22:37)
[2024-04-20] MEDS: NIFEdipine E.R. 30 MG TABLET PO SCH (15:40)
[2024-04-20] MEDS: CINACALCET HCL 30 MG TAB (FP) PO SCH (15:41)
[2024-04-20] MEDS: ABACAVIR SULFATE 300 MG TABLET PO SCH (15:41)
[2024-04-20] MEDS ORDERED: SENNOSIDES 8.6MG TABLET (FP) PO ONE (22:37)
[2024-04-20] MEDS ORDERED: TAMSULOSIN HCL 0.4 MG CAP ONE (22:37)
[2024-04-20] MEDS ORDERED: HEPARIN NA (PORCINE) 5,000 UNITS/ML 1ML VIAL ONE (22:38)
[2024-04-20] MEDS: SENNOSIDES 8.6MG TABLET (FP) PO SCH (22:54)
[2024-04-20] MEDS: lamiVUDine 150 MG TABLET PO SCH (22:54)
[2024-04-20] MEDS: DOLUTEGRAVIR SODIUM 50 MG TABLET (NON-FORMULARY) PO SCH (22:54)
[2024-04-20] MEDS: BUDESONIDE/FORMETEROL FUMARATE 160/4.5 mcg INHALER IH SCH (22:54)
[2024-04-20] MEDS: HEPARIN NA (PORCINE) 5,000 UNITS/ML 1ML VIAL SQ SCH (22:54)
[2024-04-20] MEDS: TAMSULOSIN HCL 0.4 MG CAP PO SCH (22:54)
[2024-04-21 08:43] LABS: BASO % 0.8 % (0-2.0); EOS % 1.8 % (0-4.5); HEMATOCRIT 31.2 % (35.4-49); HEMOGLOBIN 9.9 GM/dL (11.7-16.9); LYMPH % 18.4 % (8-40); MCH 24.5 pg (25.7-33.7); MCHC 31.8 g/dl (32.0-35.9); MEAN CELL VOLUME 77.1 fl (80-96); MEAN PLT VOLUME 7.9 fl (7.5-11.1); MONO % 10.3 % (3.8-10.2); NEUT % 68.7 % (42.8-82.8); PLATELET COUNT 216 10^3/uL (134-434); RBC 4.04 M/mm3 (4.00-5.60); RDW 16.3 % (11.9-15.9); WHITE BLOOD COUNT 6.1 K/mm3 (4.0-10.0)
[2024-04-21 08:51] LABS: POTASSIUM 4.1 mmol/L (3.5-5.1)
[2024-04-21 08:52] LABS: CALCIUM 8.6 mg/dL (8.5-10.1)
[2024-04-21 08:53] LABS: BLOOD UREA NITROGEN 46.5 mg/dL (7-18)
[2024-04-21 08:56] LABS: CREATININE 4.2 mg/dL (0.55-1.3)
[2024-04-21] MEDS: predniSONE 5 MG TABLET (UD) PO SCH (09:43)
[2024-04-21] MEDS: PANTOPRAZOLE 40 MG TABLET PO SCH (09:43)
[2024-04-21] MEDS: FUROSEMIDE 40 MG/4 ML INJECTABLE VIAL IVPB SCH (11:34)
[2024-04-21] MEDS: DOCUSATE SODIUM 100 MG CAPSULE (FP) PO PRN (21:26)
[2024-04-21] MEDS: MELATONIN 5 MG TABLETS PO PRN (22:23)
[2024-04-22 07:46] LABS: HEMATOCRIT 29.8 % (35.4-49); HEMOGLOBIN 9.4 GM/dL (11.7-16.9); MCH 24.6 pg (25.7-33.7); MCHC 31.5 g/dl (32.0-35.9); MEAN CELL VOLUME 78.3 fl (80-96); PLATELET COUNT 207 10^3/uL (134-434); RBC 3.81 M/mm3 (4.00-5.60); WHITE BLOOD COUNT 5.3 K/mm3 (4.0-10.0)
[2024-04-22 07:48] LABS: POTASSIUM 4.7 mmol/L (3.5-5.1)
[2024-04-22 07:52] LABS: CALCIUM 8.2 mg/dL (8.5-10.1)
[2024-04-22 07:53] LABS: BLOOD UREA NITROGEN 49.8 mg/dL (7-18)
[2024-04-22 07:56] LABS: CREATININE 4.7 mg/dL (0.55-1.3)
[2024-04-22] MEDS: lamiVUDine 150 MG TABLET PO SCH (09:54)
[2024-04-22] MEDS ORDERED: METOLAZONE 5 MG TABLET PO ONE (10:46)
[2024-04-22] MEDS: METOLAZONE 5 MG TABLET PO ONE (12:50)
[2024-04-22] MEDS: METOLAZONE 5 MG TABLET PO SCH (12:52)
[2024-04-22] MEDS ORDERED: TORSEMIDE 20 MG TABLET (FP) PO SCH (14:00)
[2024-04-22] MEDS: TORSEMIDE 20 MG TABLET (FP) PO SCH (14:18)
[2024-04-23] MEDS: MELATONIN 5 MG TABLETS PO ONE (03:03)
[2024-04-23] MEDS: hydrOXYzine PAMOATE 25 MG CAPSULE (FP) PO ONE (03:04)
[2024-04-23 07:28] LABS: POTASSIUM 4.1 mmol/L (3.5-5.1)
[2024-04-23 07:29] LABS: HEMATOCRIT 29.7 % (35.4-49); HEMOGLOBIN 9.3 GM/dL (11.7-16.9); MCH 24.3 pg (25.7-33.7); MCHC 31.3 g/dl (32.0-35.9); MEAN CELL VOLUME 77.5 fl (80-96); MEAN PLT VOLUME 8.8 fl (7.5-11.1); PLATELET COUNT 185 10^3/uL (134-434); RBC 3.83 M/mm3 (4.00-5.60); RDW 16.2 % (11.9-15.9); WHITE BLOOD COUNT 5.5 K/mm3 (4.0-10.0)
[2024-04-23 07:30] LABS: CALCIUM 7.8 mg/dL (8.5-10.1)
[2024-04-23 07:31] LABS: BLOOD UREA NITROGEN 52.6 mg/dL (7-18)
[2024-04-23 07:34] LABS: CREATININE 4.8 mg/dL (0.55-1.3)
[2024-04-23 18:56] VITALS: BP 140/68; PULSE 63; RESP 20; TEMP 98.7
== END 2024-04-23 20:32 | disposition home or self-care (01) | DRG 291 ==
LOC: JER 07:21 → JERBED 13:21 → J4W 04-21 01:26
PROVIDERS: ADMIT Internal Medicine; ATTEND Internal Medicine
DX: I13.2 Hypertensive heart and chronic kidney disease with heart failure and with stage 5 chronic kidney disease, or end stage renal disease (principal); I50.23 Acute on chronic systolic (congestive) heart failure; J96.01 Acute respiratory failure with hypoxia; Z94.0 Kidney transplant status; I16.1 Hypertensive emergency; Z21 Asymptomatic human immunodeficiency virus [HIV] infection status; J44.9 Chronic obstructive pulmonary disease, unspecified; N18.9 Chronic kidney disease, unspecified; E87.70 Fluid overload, unspecified
CPT/HCPCS: 0241U-QW; 36415; 71045-TC-FY; 71250-TC; 80048; 80053; 80197; 81003; 82803; 82962; 83735; 83880; 84484; 85025; 85027; 85610; 85730; 87086; 93005; 93010; 93990-TC; 94761; 97116-GP; 97161-GP; 99285-25; J1644

== ENCOUNTER 2024-05-11 23:53 | Inpatient (IN) | payer OTHER ==
[2024-05-12] MEDS ORDERED: TORSEMIDE 20 MG TABLET (FP) PO ONE (00:38)
[2024-05-12 01:59] LABS: EPI CELLS >36 /uL (0-25.1); HYALINE CASTS 1 /uL (0-3.1); URINE APPEARANCE CLOUDY; URINE BACTERIA 455 /uL (0-1359); URINE BILIRUBIN NEGATIVE (NEGATIVE); URINE COLOR YELLOW; URINE GLUCOSE (UA) NEGATIVE (NEGATIVE); URINE KETONE NEGATIVE (NEGATIVE); URINE LEUK ESTERASE 2+ (NEGATIVE); URINE NITRITE NEGATIVE (NEGATIVE); URINE PROTEIN 4+ (NEGATIVE); URINE RBC 191 /uL (0-23.9); URINE UROBILINOGEN 0.2 mg/dL (0.2-1.0); URINE WBC 2744 /uL (0-25.8)
[2024-05-12] MEDS: TORSEMIDE 100 MG TABLET PO ONE ×2 (02:34→15:42)
[2024-05-12 03:52] LABS: BASO % 0.8 % (0-2.0); EOS % 2.2 % (0-4.5); HEMATOCRIT 29.5 % (35.4-49); HEMOGLOBIN 9.3 GM/dL (11.7-16.9); LYMPH % 16.7 % (8-40); MCH 24.3 pg (25.7-33.7); MCHC 31.6 g/dl (32.0-35.9); MEAN PLT VOLUME 8.1 fl (7.5-11.1); MONO % 7.7 % (3.8-10.2); NEUT % 72.6 % (42.8-82.8); PLATELET COUNT 256 10^3/uL (134-434); RBC 3.82 M/mm3 (4.00-5.60); RDW 16.7 % (11.9-15.9)
[2024-05-12 04:00] LABS: VENOUS BASE EXCESS -8.1 mmol/L (-2-2); VENOUS O2 SATURATION 40.7 % (70-80); VENOUS PCO2 45.5 mmHg (38-52); VENOUS PH 7.234 (7.310-7.410)
[2024-05-12 04:02] LABS: INR 1.04 (0.83-1.09)
[2024-05-12 04:04] LABS: ACTIVATED PTT 37.3 SECONDS (25.2-36.5)
[2024-05-12 04:16] LABS: CHLORIDE 110 mmol/L (98-107); POTASSIUM 5.3 mmol/L (3.5-5.1); SODIUM 141 mmol/L (136-145)
[2024-05-12 04:18] LABS: CALCIUM 9.1 mg/dL (8.5-10.1)
[2024-05-12 04:19] LABS: ALBUMIN 2.1 g/dl (3.4-5.0); ANION GAP 13 mmol/L (4-13); CO2 18 mmol/L (21-32); GLUCOSE,RANDOM 81 mg/dL (74-106); MAGNESIUM 3.4 mg/dL (1.8-2.4)
[2024-05-12 04:22] LABS: SGOT/AST 26 U/L (15-37); SGPT/ALT 27 U/L (13-61)
[2024-05-12 04:23] LABS: BILIRUBIN,TOTAL 0.3 mg/dL (0.2-1); TOT PROT 6.6 g/dl (6.4-8.2)
[2024-05-12 04:24] LABS: ALK PHOS 96 U/L (45-117)
[2024-05-12] MEDS ORDERED: CEFTRIAXONE 1 GM/50 ML BAG ONE (04:34)
[2024-05-12 04:37] LABS: BLOOD UREA NITROGEN 112.6 mg/dL (7-18)
[2024-05-12 04:38] LABS: CREATININE 8.1 mg/dL (0.55-1.3)
[2024-05-12] MEDS ORDERED: ACETAMINOPHEN INJECTION 100 ML ONE (05:46)
[2024-05-12 06:07] LABS: N-TERMINAL BNP > 175000.0 pg/ml (5-125)
[2024-05-12] MEDS: ACETAMINOPHEN 1000 MG/100 ML BAG IVPB ONE (06:32)
[2024-05-12] MEDS ORDERED: SODIUM CHLORIDE 250 ML IV PRN (09:32)
[2024-05-12] MEDS: hydrALAZINE HCL 25 MG TABLET (FP) PO ONE (09:45)
[2024-05-12] MEDS: FUROSEMIDE 100 MG/10 ML INJECTABLE VIAL IVPB ONE (15:06)
[2024-05-12] MEDS: lamiVUDine 150 MG TABLET PO SCH ×2 (15:06→15:39)
[2024-05-12] MEDS ORDERED: TAMSULOSIN HCL 0.4 MG CAP ONE (15:15)
[2024-05-12] MEDS ORDERED: HEPARIN NA (PORCINE) 5,000 UNITS/ML 1ML VIAL ONE (15:15)
[2024-05-12] MEDS: ABACAVIR SULFATE 300 MG TABLET PO SCH (15:39)
[2024-05-12] MEDS: HEPARIN NA (PORCINE) 5,000 UNITS/ML 1ML VIAL SQ SCH (15:39)
[2024-05-12] MEDS: DOLUTEGRAVIR SODIUM 50 MG TABLET (NON-FORMULARY) PO SCH (15:39)
[2024-05-12] MEDS: FUROSEMIDE IVPB ONE (15:39)
[2024-05-12] MEDS: TAMSULOSIN HCL 0.4 MG CAP PO SCH (15:39)
[2024-05-12] MEDS: SODIUM CHLORIDE IVPB ONE (15:39)
[2024-05-12] MEDS: BUMETANIDE 1 MG TABLET PO ONE (15:40)
[2024-05-12 18:25] VITALS: BMI 31.4
[2024-05-13 09:39] LABS: CHLORIDE 108 mmol/L (98-107); POTASSIUM 5.3 mmol/L (3.5-5.1); SODIUM 137 mmol/L (136-145)
[2024-05-13 09:45] LABS: ALBUMIN 1.8 g/dl (3.4-5.0); ANION GAP 9 mmol/L (4-13); BLOOD UREA NITROGEN 95.6 mg/dL (7-18); CO2 21 mmol/L (21-32); GLUCOSE,RANDOM 81 mg/dL (74-106)
[2024-05-13 09:48] LABS: SGOT/AST 27 U/L (15-37); SGPT/ALT 24 U/L (13-61)
[2024-05-13 09:50] LABS: BILIRUBIN,TOTAL 0.3 mg/dL (0.2-1); TOT PROT 6.2 g/dl (6.4-8.2)
[2024-05-13 09:51] LABS: ALK PHOS 86 U/L (45-117)
[2024-05-13 10:03] LABS: CREATININE 7.6 mg/dL (0.55-1.3)
[2024-05-13] MEDS: hydrALAZINE HCL 25 MG TABLET (FP) PO SCH (10:09)
[2024-05-13] MEDS: ISOSORBIDE DINITRATE 20 MG TABLET PO SCH (10:09)
[2024-05-13] MEDS: metoPROLOL SUCCINATE 25 MG TAB.SR.24H (FP) PO SCH (10:09)
[2024-05-13 13:10] LABS: BASO % 1.1 % (0-2.0); EOS % 2.3 % (0-4.5); HEMATOCRIT 26.6 % (35.4-49); HEMOGLOBIN 8.5 GM/dL (11.7-16.9); LYMPH % 18.4 % (8-40); MCH 24.1 pg (25.7-33.7); MCHC 31.9 g/dl (32.0-35.9); MEAN CELL VOLUME 75.6 fl (80-96); MEAN PLT VOLUME 7.9 fl (7.5-11.1); MONO % 8.3 % (3.8-10.2); NEUT % 69.9 % (42.8-82.8); PLATELET COUNT 228 10^3/uL (134-434); RBC 3.51 M/mm3 (4.00-5.60); RDW 16.4 % (11.9-15.9); WHITE BLOOD COUNT 6.3 K/mm3 (4.0-10.0)
[2024-05-13] MEDS ORDERED: SODIUM CHLORIDE 250 ML IV PRN (13:50)
[2024-05-13] MEDS: TORSEMIDE 100 MG TABLET PO SCH (17:09)
[2024-05-13] MEDS: LACTULOSE 20 GM/30 ML UDC (FOR ORAL USE ONLY) PO ONE (18:05)
[2024-05-13] MEDS: TACROLIMUS ANHYDROUS 5 MG CAPSULE PO SCH (21:50)
[2024-05-13] MEDS: TACROLIMUS 5 MG PO SCH (21:57)
[2024-05-14 11:00] LABS: CHLORIDE 106 mmol/L (98-107); POTASSIUM 4.9 mmol/L (3.5-5.1); SODIUM 139 mmol/L (136-145)
[2024-05-14 11:04] LABS: ANION GAP 9 mmol/L (4-13); CALCIUM 9.1 mg/dL (8.5-10.1); CO2 24 mmol/L (21-32); GLUCOSE,RANDOM 95 mg/dL (74-106); MAGNESIUM 3.2 mg/dL (1.8-2.4)
[2024-05-14 11:07] LABS: BLOOD UREA NITROGEN 105.1 mg/dL (7-18)
[2024-05-14 11:15] LABS: CREATININE 8.5 mg/dL (0.55-1.3)
[2024-05-14 12:05] LABS: PHOSPHOROUS 9.9 mg/dL (2.5-4.9)
[2024-05-14] MEDS: EPOETIN ALFA-EPBX 10,000 UNIT/ML VIAL SQ ONE (17:05)
[2024-05-14] MEDS: HEPARIN NA (PORCINE) 5,000 UNITS/ML 1ML VIAL IVPUSH ONE (17:05)
[2024-05-15] MEDS: ACETAMINOPHEN 1000 MG/100 ML BAG IVPB ONE (02:15)
[2024-05-15 08:23] LABS: POTASSIUM 4.4 mmol/L (3.5-5.1)
[2024-05-15 08:25] LABS: CALCIUM 8.7 mg/dL (8.5-10.1)
[2024-05-15 08:26] LABS: ALBUMIN 1.8 g/dl (3.4-5.0); MAGNESIUM 2.8 mg/dL (1.8-2.4)
[2024-05-15 08:29] LABS: PHOSPHOROUS 8.5 mg/dL (2.5-4.9)
[2024-05-15 08:30] LABS: BILIRUBIN,TOTAL 0.3 mg/dL (0.2-1); TOT PROT 5.9 g/dl (6.4-8.2)
[2024-05-15 08:32] LABS: BLOOD UREA NITROGEN 68.1 mg/dL (7-18)
[2024-05-15] MEDS: FUROSEMIDE 40 MG/4 ML INJECTABLE VIAL IVPUSH ONE (18:33)
[2024-05-15] MEDS: ALBUTEROL SO4 HFA INHALER IH PRN (18:36)
[2024-05-15] MEDS: BENZOCAINE/MENTH/CETYLPYRD CL 1 EACH LOZENGE MM ONE (18:40)
[2024-05-16] MEDS: ACETAMINOPHEN 1000 MG/100 ML BAG IVPB ONE (14:05)
[2024-05-16] MEDS: BENZOCAINE/MENTH/CETYLPYRD CL 1 EACH LOZENGE MM PRN (14:13)
[2024-05-17] MEDS ORDERED: SODIUM CHLORIDE 250 ML IV PRN (15:12)
[2024-05-17] MEDS ORDERED: DOCUSATE NA 100 MG/10 ML UNIT-DOSE CUPS PO PRN (16:35)
[2024-05-17] MEDS: HEPARIN NA (PORCINE) 5,000 UNITS/ML 1ML VIAL IVPUSH ONE (19:23)
[2024-05-17] MEDS: EPOETIN ALFA-EPBX 10,000 UNIT/ML VIAL SQ ONE (19:24)
[2024-05-18] MEDS: BENZOCAINE/MENTH/CETYLPYRD CL 1 EACH LOZENGE MM PRN (09:11)
[2024-05-18 10:24] LABS: BASO % 1.1 % (0-2.0); EOS % 6.1 % (0-4.5); HEMATOCRIT 27.5 % (35.4-49); HEMOGLOBIN 8.7 GM/dL (11.7-16.9); LYMPH % 23.9 % (8-40); MCH 24.3 pg (25.7-33.7); MCHC 31.7 g/dl (32.0-35.9); MEAN CELL VOLUME 76.8 fl (80-96); MEAN PLT VOLUME 7.4 fl (7.5-11.1); MONO % 7.8 % (3.8-10.2); NEUT % 61.1 % (42.8-82.8); PLATELET COUNT 240 10^3/uL (134-434); RBC 3.58 M/mm3 (4.00-5.60); RDW 16.4 % (11.9-15.9); WHITE BLOOD COUNT 6.5 K/mm3 (4.0-10.0)
[2024-05-18 10:54] LABS: POTASSIUM 4.6 mmol/L (3.5-5.1)
[2024-05-18 10:55] LABS: CALCIUM 8.5 mg/dL (8.5-10.1)
[2024-05-18 10:56] LABS: ALBUMIN 1.8 g/dl (3.4-5.0); BLOOD UREA NITROGEN 47.9 mg/dL (7-18)
[2024-05-18 10:59] LABS: CREATININE 6.3 mg/dL (0.55-1.3)
[2024-05-18 11:01] LABS: BILIRUBIN,TOTAL 0.2 mg/dL (0.2-1); TOT PROT 5.9 g/dl (6.4-8.2)
[2024-05-18] MEDS ORDERED: TACROLIMUS ANHYDROUS 5 MG CAPSULE PO SCH (16:39)
[2024-05-18] MEDS: TACROLIMUS ANHYDROUS PO SCH (21:57)
[2024-05-19] MEDS: ACETAMINOPHEN 1000 MG/100 ML BAG IVPB ONE (08:19)
[2024-05-19] MEDS ORDERED: guaiFENesin 200 MG/10 ML 10 ML UNIT-DOSE CUPS PO PRN (09:03)
[2024-05-19] MEDS ORDERED: SODIUM CHLORIDE 250 ML IV PRN (09:08)
[2024-05-19] MEDS: EPOETIN ALFA-EPBX 10,000 UNIT/ML VIAL SQ ONE (12:08)
[2024-05-19] MEDS: HEPARIN NA (PORCINE) 5,000 UNITS/ML 1ML VIAL IVPUSH ONE (13:24)
[2024-05-19] MEDS ORDERED: ABACAVIR SULFATE 20 MG/1 ML LIQUID BULK BOTTLE PO ONE (17:30)
[2024-05-19] MEDS: DOCUSATE NA 100 MG/10 ML UNIT-DOSE CUPS PO SCH (17:30)
[2024-05-19] MEDS: ABACAVIR SULFATE 300 MG TABLET PO ONE (20:21)
[2024-05-20] MEDS ORDERED: DOCUSATE NA 100 MG/10 ML UNIT-DOSE CUPS PO PRN (13:35)
[2024-05-20] MEDS: ACETAMINOPHEN 325 MG TABLET (FP) PO PRN (15:18)
[2024-05-20] MEDS: predniSONE 5 MG TABLET (UD) PO SCH (15:19)
[2024-05-20 15:22] LABS: EOS % 4.7 % (0-4.5); HEMATOCRIT 29.4 % (35.4-49); HEMOGLOBIN 9.2 GM/dL (11.7-16.9); LYMPH % 15.5 % (8-40); MCH 24.2 pg (25.7-33.7); MCHC 31.2 g/dl (32.0-35.9); MEAN CELL VOLUME 77.5 fl (80-96); MEAN PLT VOLUME 7.6 fl (7.5-11.1); MONO % 10.4 % (3.8-10.2); NEUT % 68.4 % (42.8-82.8); PLATELET COUNT 252 10^3/uL (134-434); RBC 3.79 M/mm3 (4.00-5.60); RDW 17.1 % (11.9-15.9); WHITE BLOOD COUNT 7.4 K/mm3 (4.0-10.0)
[2024-05-20 15:43] LABS: POTASSIUM 4.6 mmol/L (3.5-5.1)
[2024-05-20 15:46] LABS: CALCIUM 9.4 mg/dL (8.5-10.1)
[2024-05-20 15:48] LABS: BLOOD UREA NITROGEN 38.1 mg/dL (7-18)
[2024-05-20 15:51] LABS: CREATININE 6.3 mg/dL (0.55-1.3)
[2024-05-20] MEDS: TACROLIMUS ANHYDROUS 5 MG CAPSULE PO SCH (21:35)
[2024-05-21] MEDS ORDERED: SODIUM CHLORIDE 250 ML IV PRN (12:29)
[2024-05-21] MEDS: HEPARIN NA (PORCINE) 5,000 UNITS/ML 1ML VIAL IVPUSH ONE (12:45)
[2024-05-21 13:17] LABS: HEMATOCRIT 27.4 % (35.4-49); HEMOGLOBIN 8.6 GM/dL (11.7-16.9); MCHC 31.3 g/dl (32.0-35.9); MEAN CELL VOLUME 76.6 fl (80-96); MEAN PLT VOLUME 7.5 fl (7.5-11.1); PLATELET COUNT 252 10^3/uL (134-434); RBC 3.58 M/mm3 (4.00-5.60); RDW 16.8 % (11.9-15.9)
[2024-05-21] MEDS ORDERED: TACROLIMUS ANHYDROUS 1 MG CAPSULE PO SCH (14:10)
[2024-05-21 14:14] LABS: POTASSIUM 4.9 mmol/L (3.5-5.1)
[2024-05-21] MEDS: EPOETIN ALFA-EPBX 10,000 UNIT, EPOETIN ALFA-EPBX 2,000 UNIT IVPUSH ONE (14:15)
[2024-05-21] MEDS ORDERED: EPOETIN ALFA-EPBX 10,000 UNIT/ML VIAL SQ ONE (14:16)
[2024-05-21 14:30] LABS: CALCIUM 8.9 mg/dL (8.5-10.1)
[2024-05-21 14:32] LABS: ALBUMIN 1.9 g/dl (3.4-5.0); BLOOD UREA NITROGEN 42.9 mg/dL (7-18)
[2024-05-21 14:35] LABS: BILIRUBIN,TOTAL 0.4 mg/dL (0.2-1); CREATININE 7.2 mg/dL (0.55-1.3)
[2024-05-21 17:06] VITALS: BP 138/72; PULSE 80; RESP 17; TEMP 98
== END 2024-05-21 17:06 | disposition home or self-care (01) | DRG 291 ==
LOC: JER 23:53 → JERBED 05-12 05:07 → UNDOADMOB 05-12 05:07 → INTOOBSV 05-12 05:07 → JERBED 05-12 13:59 → J7W 05-12 16:42 → OBSVTOIN 05-14 11:50
PROVIDERS: ADMIT Student in an Organized Health Care Education/Training Program; ATTEND Nurse Practitioner
PROC: 05HC33Z Insertion of Infusion Device into Left Basilic Vein, Percutaneous Approach (ICD-10-PCS; principal; 2024-05-13)
PROC: B54NZZA Ultrasonography of Left Upper Extremity Veins, Guidance (ICD-10-PCS; 2024-05-13)
PROC: 5A1D70Z Performance of Urinary Filtration, Intermittent, Less than 6 Hours Per Day (ICD-10-PCS; 2024-05-13)
PROC: 5A1D70Z Performance of Urinary Filtration, Intermittent, Less than 6 Hours Per Day (ICD-10-PCS; 2024-05-13)
PROC: 5A1D70Z Performance of Urinary Filtration, Intermittent, Less than 6 Hours Per Day (ICD-10-PCS; 2024-05-13)
PROC: 5A1D70Z Performance of Urinary Filtration, Intermittent, Less than 6 Hours Per Day (ICD-10-PCS; 2024-05-13)
PROC: 5A1D70Z Performance of Urinary Filtration, Intermittent, Less than 6 Hours Per Day (ICD-10-PCS; 2024-05-13)
DX: I13.2 Hypertensive heart and chronic kidney disease with heart failure and with stage 5 chronic kidney disease, or end stage renal disease (principal); I50.23 Acute on chronic systolic (congestive) heart failure; N18.6 End stage renal disease; J96.01 Acute respiratory failure with hypoxia; N17.9 Acute kidney failure, unspecified; E87.20 Acidosis, unspecified; I87.1 Compression of vein; Z94.0 Kidney transplant status; D63.1 Anemia in chronic kidney disease; I16.0 Hypertensive urgency; E87.5 Hyperkalemia; Z99.2 Dependence on renal dialysis; J44.9 Chronic obstructive pulmonary disease, unspecified; Z21 Asymptomatic human immunodeficiency virus [HIV] infection status; F32.A Depression, unspecified; F20.9 Schizophrenia, unspecified; E87.70 Fluid overload, unspecified; Z91.148 Patient's other noncompliance with medication regimen for other reason
CPT/HCPCS: 36415; 71045-TC-FY; 71275-TC; 80048; 80053; 80197; 81003; 82803; 83036; 83605; 83735; 83880; 84100; 84484; 85025; 85027; 85610; 85730; 86359; 86360; 86704; 86705; 86803; 86850; 86900; 86901; 87070; 87086; 87205; 87340; 87536; 93005; 93010; 93306-TC; 93971; 99285-25; G0378; J0131; J1644; Q5106

== ENCOUNTER 2024-05-28 14:06 | Observation (INO) | payer OTHER ==
[2024-05-28] MEDS: ALBUTEROL SO4 0.083% IH SOL 2.5 MG/3 ML VIAL.NEB. NEB ONE (17:57)
[2024-05-28] MEDS: SODIUM ZIRCONIUM CYCLOSILICATE (LOKELMA) 5 GM PACKET PO SCH (17:57)
[2024-05-28 18:55] LABS: HEMATOCRIT 22.8 % (35.4-49); HEMOGLOBIN 6.9 GM/dL (11.7-16.9); MCH 24.2 pg (25.7-33.7); MCHC 30.1 g/dl (32.0-35.9); MEAN CELL VOLUME 80.4 fl (80-96); MEAN PLT VOLUME 7.9 fl (7.5-11.1); PLATELET COUNT 210 10^3/uL (134-434); RBC 2.84 M/mm3 (4.00-5.60); RDW 16.9 % (11.9-15.9); WHITE BLOOD COUNT 12.6 K/mm3 (4.0-10.0)
[2024-05-28 19:03] LABS: INR 1.15 (0.83-1.09); PROTHROMBIN TIME (PATIENT) 12.9 SEC (9.7-13.0)
[2024-05-28 19:05] LABS: ACTIVATED PTT 31.4 SECONDS (25.2-36.5)
[2024-05-28] MEDS ORDERED: SODIUM CHLORIDE 250 ML IV PRN ×2 (19:21→20:05)
[2024-05-28 19:24] LABS: CHLORIDE 102 mmol/L (98-107); POTASSIUM 5.4 mmol/L (3.5-5.1); SODIUM 139 mmol/L (136-145)
[2024-05-28 19:25] LABS: MAGNESIUM 2.4 mg/dL (1.8-2.4)
[2024-05-28 19:26] LABS: CALCIUM 8.3 mg/dL (8.5-10.1)
[2024-05-28 19:27] LABS: ALBUMIN 1.9 g/dl (3.4-5.0); ANION GAP 9 mmol/L (4-13); CO2 28 mmol/L (21-32); GLUCOSE,RANDOM 105 mg/dL (74-106)
[2024-05-28 19:30] LABS: SGOT/AST 125 U/L (15-37); SGPT/ALT 206 U/L (13-61)
[2024-05-28 19:31] LABS: BILIRUBIN,TOTAL 0.5 mg/dL (0.2-1)
[2024-05-28 19:32] LABS: BLOOD UREA NITROGEN 72.4 mg/dL (7-18); CREATININE 10.6 mg/dL (0.55-1.3); TOT PROT 5.9 g/dl (6.4-8.2)
[2024-05-28 19:36] LABS: ALK PHOS 122 U/L (45-117)
[2024-05-28 20:07] LABS: ANISOCYTOSIS 3+; MACROCYTOSIS 0
[2024-05-28] MEDS: hydrALAZINE HCL 25 MG TABLET (FP) PO SCH (22:39)
[2024-05-28] MEDS: NIFEdipine E.R. 30 MG TABLET PO SCH (22:40)
[2024-05-28] MEDS: TACROLIMUS ANHYDROUS 5 MG CAPSULE PO SCH (22:41)
[2024-05-28] MEDS: DOLUTEGRAVIR SODIUM 50 MG TABLET (NON-FORMULARY) PO SCH (22:41)
[2024-05-28] MEDS: lamiVUDine 150 MG TABLET PO SCH (22:41)
[2024-05-28 23:26] VITALS: BMI 27.7
[2024-05-29 08:13] LABS: BASO % 0.6 % (0-2.0); EOS % 3.4 % (0-4.5); HEMATOCRIT 21.6 % (35.4-49); LYMPH % 12.1 % (8-40); MCH 24.2 pg (25.7-33.7); MCHC 30.3 g/dl (32.0-35.9); MEAN CELL VOLUME 79.8 fl (80-96); MEAN PLT VOLUME 7.7 fl (7.5-11.1); MONO % 6.3 % (3.8-10.2); NEUT % 77.6 % (42.8-82.8); PLATELET COUNT 211 10^3/uL (134-434); RBC 2.71 M/mm3 (4.00-5.60); RDW 16.9 % (11.9-15.9); WHITE BLOOD COUNT 11.8 K/mm3 (4.0-10.0)
[2024-05-29 08:32] LABS: CHLORIDE 104 mmol/L (98-107); POTASSIUM 4.7 mmol/L (3.5-5.1); SODIUM 143 mmol/L (136-145)
[2024-05-29 08:37] LABS: HEMOGLOBIN 6.6 GM/dL (11.7-16.9)
[2024-05-29 08:55] LABS: ANION GAP 8 mmol/L (4-13); BLOOD UREA NITROGEN 55.3 mg/dL (7-18); CO2 31 mmol/L (21-32); GLUCOSE,RANDOM 85 mg/dL (74-106)
[2024-05-29 09:00] LABS: CREATININE 8.4 mg/dL (0.55-1.3)
[2024-05-29] MEDS: predniSONE 5 MG TABLET (UD) PO SCH (09:30)
[2024-05-29] MEDS: TORSEMIDE 100 MG TABLET PO SCH (09:30)
[2024-05-29] MEDS: CINACALCET HCL 30 MG TAB (FP) PO SCH (09:30)
[2024-05-29] MEDS ORDERED: SODIUM CHLORIDE 250 ML IV PRN (10:56)
[2024-05-29] MEDS: ABACAVIR SULFATE 300 MG TABLET PO SCH (11:17)
[2024-05-30] MEDS: ALBUTEROL SO4 0.083% IH SOL 2.5 MG/3 ML VIAL.NEB. NEB STA (08:20)
[2024-05-30 08:55] LABS: BASO % 0.4 % (0-2.0); HEMATOCRIT 26.3 % (35.4-49); HEMOGLOBIN 8.2 GM/dL (11.7-16.9); LYMPH % 14.4 % (8-40); MCH 25.4 pg (25.7-33.7); MEAN CELL VOLUME 81.8 fl (80-96); MEAN PLT VOLUME 7.8 fl (7.5-11.1); MONO % 6.4 % (3.8-10.2); NEUT % 75.8 % (42.8-82.8); PLATELET COUNT 232 10^3/uL (134-434); RBC 3.21 M/mm3 (4.00-5.60); RDW 18.5 % (11.9-15.9); WHITE BLOOD COUNT 11.9 K/mm3 (4.0-10.0)
[2024-05-30 09:02] LABS: BLOOD UREA NITROGEN 34.5 mg/dL (7-18)
[2024-05-30 09:05] LABS: CREATININE 5.8 mg/dL (0.55-1.3)
[2024-05-30] MEDS ORDERED: SODIUM CHLORIDE 250 ML IV PRN (12:12)
[2024-05-30] MEDS: DOCUSATE SODIUM 100 MG CAPSULE (FP) PO PRN (12:25)
[2024-05-30] MEDS ORDERED: guaiFENesin 200 MG/10 ML 10 ML UNIT-DOSE CUPS PO PRN (13:38)
[2024-05-30] MEDS: ALBUTEROL SO4 HFA INHALER IH PRN (14:49)
[2024-05-31] MEDS: BENZOCAINE/MENTH/CETYLPYRD CL 1 EACH LOZENGE MM PRN (11:37)
[2024-05-31] MEDS: TACROLIMUS ANHYDROUS 1 MG CAPSULE PO SCH (21:54)
[2024-06-02] MEDS ORDERED: SODIUM CHLORIDE 250 ML IV PRN (10:56)
[2024-06-02] MEDS: HEPARIN NA (PORCINE) 5,000 UNITS/ML 1ML VIAL IVPUSH ONE (11:15)
[2024-06-02] MEDS: EPOETIN ALFA-EPBX 10,000 UNIT/ML VIAL SQ ONE (11:50)
[2024-06-02 11:53] LABS: BASO % 0.6 % (0-2.0); EOS % 2.6 % (0-4.5); HEMATOCRIT 23.2 % (35.4-49); HEMOGLOBIN 7.2 GM/dL (11.7-16.9); LYMPH % 10.4 % (8-40); MCH 25.4 pg (25.7-33.7); MCHC 30.9 g/dl (32.0-35.9); MEAN CELL VOLUME 82.2 fl (80-96); MEAN PLT VOLUME 7.7 fl (7.5-11.1); NEUT % 77.4 % (42.8-82.8); PLATELET COUNT 277 10^3/uL (134-434); RBC 2.82 M/mm3 (4.00-5.60); RDW 18.4 % (11.9-15.9); WHITE BLOOD COUNT 11.3 K/mm3 (4.0-10.0)
[2024-06-02 12:11] LABS: POTASSIUM 4.4 mmol/L (3.5-5.1)
[2024-06-02 12:15] LABS: ALBUMIN 1.8 g/dl (3.4-5.0); BLOOD UREA NITROGEN 39.3 mg/dL (7-18)
[2024-06-02 12:17] LABS: CREATININE 6.1 mg/dL (0.55-1.3)
[2024-06-02 12:19] LABS: BILIRUBIN,TOTAL 0.4 mg/dL (0.2-1); TOT PROT 5.6 g/dl (6.4-8.2)
[2024-06-02 14:44] VITALS: RESP 20
[2024-06-03 08:57] LABS: BASO % 0.8 % (0-2.0); EOS % 2.1 % (0-4.5); HEMOGLOBIN 7.2 GM/dL (11.7-16.9); LYMPH % 13.3 % (8-40); MCH 25.5 pg (25.7-33.7); MCHC 31.3 g/dl (32.0-35.9); MEAN CELL VOLUME 81.6 fl (80-96); MEAN PLT VOLUME 7.5 fl (7.5-11.1); MONO % 10.8 % (3.8-10.2); PLATELET COUNT 282 10^3/uL (134-434); RBC 2.82 M/mm3 (4.00-5.60); RDW 18.2 % (11.9-15.9); WHITE BLOOD COUNT 10.8 K/mm3 (4.0-10.0)
[2024-06-03 09:13] LABS: POTASSIUM 4.5 mmol/L (3.5-5.1)
[2024-06-03 09:14] LABS: CALCIUM 8.6 mg/dL (8.5-10.1)
[2024-06-03 09:16] LABS: BLOOD UREA NITROGEN 25.7 mg/dL (7-18)
[2024-06-03 09:18] LABS: CREATININE 4.7 mg/dL (0.55-1.3)
[2024-06-03] MEDS: ACETAMINOPHEN 325 MG TABLET (FP) PO PRN (12:30)
[2024-06-03 14:12] VITALS: BP 125/55; PULSE 71; TEMP 98.8
== END 2024-06-03 14:53 ==
LOC: JER 14:06 → JERBED 18:45 → J7W 20:56
PROVIDERS: ADMIT Internal Medicine; ATTEND Nurse Practitioner
PROC: 3E023GC Introduction of Other Therapeutic Substance into Muscle, Percutaneous Approach (ICD-10-PCS; principal; 2024-05-28)
PROC: 3E033GC Introduction of Other Therapeutic Substance into Peripheral Vein, Percutaneous Approach (ICD-10-PCS; 2024-05-28)
DX: Z91.158 Patient's noncompliance with renal dialysis for other reason (principal); N18.6 End stage renal disease; I11.0 Hypertensive heart disease with heart failure; D64.9 Anemia, unspecified; J44.9 Chronic obstructive pulmonary disease, unspecified; K21.9 Gastro-esophageal reflux disease without esophagitis; I25.10 Atherosclerotic heart disease of native coronary artery without angina pectoris; Z21 Asymptomatic human immunodeficiency virus [HIV] infection status; Z94.0 Kidney transplant status
CPT/HCPCS: 36415; 36430; 71045-TC-FY; 80048; 80053; 82550; 82553; 82962; 83735; 83880; 84100; 84484; 85025; 85610; 85730; 86803; 86850; 86900; 86901; 86922; 87040; 87340; 87517; 93005; 93010; 96372; 96374; 97116-GP; 97161-GP; 99285-25; G0378; J1644; P9038; P9058; Q5106

== ENCOUNTER 2024-07-02 07:29 | Inpatient (IN) | payer OTHER ==
[2024-07-02 09:21] LABS: CHLORIDE 100 mmol/L (98-107); SODIUM 138 mmol/L (136-145)
[2024-07-02 09:23] LABS: ALBUMIN 2.3 g/dl (3.4-5.0); CALCIUM 9.6 mg/dL (8.5-10.1); CO2 25 mmol/L (21-32); GLUCOSE,RANDOM 84 mg/dL (74-106); MAGNESIUM 2.9 mg/dL (1.8-2.4)
[2024-07-02 09:24] LABS: BASO % 0.8 % (0-2.0); EOS % 1.3 % (0-4.5); HEMATOCRIT 24.3 % (35.4-49); HEMOGLOBIN 7.8 GM/dL (11.7-16.9); LYMPH % 20.1 % (8-40); MCH 24.6 pg (25.7-33.7); MCHC 31.9 g/dl (32.0-35.9); MEAN PLT VOLUME 8.9 fl (7.5-11.1); NEUT % 70.8 % (42.8-82.8); PLATELET COUNT 202 10^3/uL (134-434); RBC 3.15 M/mm3 (4.00-5.60); RDW 17.6 % (11.9-15.9); WHITE BLOOD COUNT 7.8 K/mm3 (4.0-10.0)
[2024-07-02 09:26] LABS: INR 1.31 (0.83-1.09); PROTHROMBIN TIME (PATIENT) 14.7 SEC (9.7-13.0); SGOT/AST 35 U/L (15-37); SGPT/ALT 34 U/L (13-61)
[2024-07-02 09:28] LABS: BILIRUBIN,TOTAL 0.4 mg/dL (0.2-1); TOT PROT 7.2 g/dl (6.4-8.2)
[2024-07-02 09:29] LABS: ACTIVATED PTT 25.3 SECONDS (25.2-36.5); ALK PHOS 92 U/L (45-117)
[2024-07-02 09:37] LABS: ANION GAP 12 mmol/L (4-13); BLOOD UREA NITROGEN 114.6 mg/dL (7-18); CREATININE 14.8 mg/dL (0.55-1.3); PHOSPHOROUS 8.3 mg/dL (2.5-4.9); POTASSIUM 7.6 mmol/L (3.5-5.1)
[2024-07-02 09:50] LABS: N-TERMINAL BNP > 175000.0 pg/ml (5-125)
[2024-07-02] MEDS ORDERED: ALBUTEROL SO4 HFA INHALER IH PRN (11:23)
[2024-07-02] MEDS: HEPARIN NA (PORCINE) 5,000 UNITS/ML 1ML VIAL IVPUSH ONE (12:05)
[2024-07-02] MEDS ORDERED: SODIUM CHLORIDE 250 ML IV PRN ×2 (13:00→13:38)
[2024-07-02] MEDS: EPOETIN ALFA-EPBX 10,000 UNIT/ML VIAL SQ ONE (15:58)
[2024-07-02] MEDS: SODIUM ZIRCONIUM CYCLOSILICATE (LOKELMA) 5 GM PACKET PO SCH (16:25)
[2024-07-02] MEDS: INSULIN REGULAR HUMAN 100 UNITS/ML *VIAL IVPUSH ONE (16:25)
[2024-07-02] MEDS: DEXTROSE 50%-WATER 25 GM/50 ML DISP.SYRIN IVPUSH ONE (16:25)
[2024-07-02] MEDS: CALCIUM GLUCONATE IN NACL 1 GM/50 ML BAG IVPB ONE (16:25)
[2024-07-02] MEDS: HEPARIN NA (PORCINE) 5,000 UNITS/ML 1ML VIAL SQ SCH (17:03)
[2024-07-02 17:47] VITALS: BMI 30.2
[2024-07-02 19:23] LABS: CHLORIDE 101 mmol/L (98-107); SODIUM 137 mmol/L (136-145)
[2024-07-02 19:24] LABS: CALCIUM 8.8 mg/dL (8.5-10.1)
[2024-07-02 19:25] LABS: CO2 26 mmol/L (21-32); GLUCOSE,RANDOM 64 mg/dL (74-106)
[2024-07-02 19:26] LABS: ANION GAP 11 mmol/L (4-13); BLOOD UREA NITROGEN 79.6 mg/dL (7-18); POTASSIUM 8.6 mmol/L (3.5-5.1)
[2024-07-02 19:28] LABS: SGOT/AST 54 U/L (15-37)
[2024-07-02 19:30] LABS: BILIRUBIN,TOTAL 0.5 mg/dL (0.2-1); TOT PROT 6.7 g/dl (6.4-8.2)
[2024-07-02 19:31] LABS: ALK PHOS 83 U/L (45-117)
[2024-07-02 19:32] LABS: SGPT/ALT 35 U/L (13-61)
[2024-07-02 19:34] LABS: CREATININE 10.9 mg/dL (0.55-1.3)
[2024-07-02 19:37] LABS: CHLORIDE 101 mmol/L (98-107); POTASSIUM 5.6 mmol/L (3.5-5.1); SODIUM 140 mmol/L (136-145)
[2024-07-02 19:39] LABS: ALBUMIN 2.1 g/dl (3.4-5.0); ANION GAP 11 mmol/L (4-13); BLOOD UREA NITROGEN 77.6 mg/dL (7-18); CALCIUM 8.7 mg/dL (8.5-10.1); CO2 29 mmol/L (21-32)
[2024-07-02 19:40] LABS: GLUCOSE,RANDOM 94 mg/dL (74-106)
[2024-07-02 19:42] LABS: SGPT/ALT 31 U/L (13-61)
[2024-07-02 19:43] LABS: SGOT/AST 27 U/L (15-37)
[2024-07-02 19:44] LABS: BILIRUBIN,TOTAL 0.4 mg/dL (0.2-1); TOT PROT 6.5 g/dl (6.4-8.2)
[2024-07-02 19:45] LABS: ALK PHOS 84 U/L (45-117)
[2024-07-02 19:50] LABS: CREATININE 10.8 mg/dL (0.55-1.3)
[2024-07-02] MEDS: NIFEdipine E.R. 30 MG TABLET PO SCH (21:53)
[2024-07-02] MEDS: hydrALAZINE HCL 25 MG TABLET (FP) PO SCH (21:53)
[2024-07-02] MEDS: TAMSULOSIN HCL 0.4 MG CAP PO SCH (21:55)
[2024-07-02] MEDS ORDERED: TACROLIMUS ANHYDROUS 1 MG CAPSULE PO SCH (22:00)
[2024-07-02] MEDS: SODIUM ZIRCONIUM CYCLOSILICATE (LOKELMA) 5 GM PACKET PO ONE (22:07)
[2024-07-02] MEDS: DOLUTEGRAVIR SODIUM 50 MG TABLET (NON-FORMULARY) PO SCH (22:27)
[2024-07-02] MEDS: lamiVUDine 150 MG TABLET PO SCH (22:27)
[2024-07-02] MEDS: TACROLIMUS ANHYDROUS 1 MG CAPSULE PO SCH (22:28)
[2024-07-03] MEDS: CINACALCET HCL 30 MG TAB (FP) PO SCH (09:31)
[2024-07-03] MEDS: predniSONE 5 MG TABLET (UD) PO SCH (09:31)
[2024-07-03] MEDS: ABACAVIR SULFATE 300 MG TABLET PO SCH (09:31)
[2024-07-03] MEDS ORDERED: HEPARIN NA (PORCINE) 5,000 UNITS/ML 1ML VIAL IVPUSH ONE (13:00)
[2024-07-03 13:30] LABS: BASO % 0.7 % (0-2.0); EOS % 3.3 % (0-4.5); HEMATOCRIT 24.8 % (35.4-49); HEMOGLOBIN 7.8 GM/dL (11.7-16.9); LYMPH % 19.8 % (8-40); MCH 24.4 pg (25.7-33.7); MCHC 31.4 g/dl (32.0-35.9); MEAN CELL VOLUME 77.7 fl (80-96); MEAN PLT VOLUME 7.9 fl (7.5-11.1); MONO % 6.6 % (3.8-10.2); NEUT % 69.6 % (42.8-82.8); PLATELET COUNT 267 10^3/uL (134-434); RBC 3.19 M/mm3 (4.00-5.60); RDW 17.9 % (11.9-15.9); WHITE BLOOD COUNT 7.9 K/mm3 (4.0-10.0)
[2024-07-03 14:07] LABS: CHLORIDE 102 mmol/L (98-107); POTASSIUM 5.3 mmol/L (3.5-5.1); SODIUM 141 mmol/L (136-145)
[2024-07-03 14:14] LABS: ANION GAP 9 mmol/L (4-13); BLOOD UREA NITROGEN 78.1 mg/dL (7-18); CALCIUM 8.3 mg/dL (8.5-10.1); CO2 30 mmol/L (21-32); MAGNESIUM 2.5 mg/dL (1.8-2.4)
[2024-07-03 14:15] LABS: GLUCOSE,RANDOM 125 mg/dL (74-106)
[2024-07-03 14:17] LABS: SGOT/AST 23 U/L (15-37); SGPT/ALT 25 U/L (13-61)
[2024-07-03 14:18] LABS: PHOSPHOROUS 7.6 mg/dL (2.5-4.9)
[2024-07-03 14:19] LABS: BILIRUBIN,TOTAL 0.4 mg/dL (0.2-1); TOT PROT 6.5 g/dl (6.4-8.2)
[2024-07-03 14:20] LABS: ALK PHOS 80 U/L (45-117)
[2024-07-03 14:24] LABS: CREATININE 11.4 mg/dL (0.55-1.3)
[2024-07-03] MEDS: EPOETIN ALFA-EPBX 10,000 UNIT/ML VIAL SQ ONE (14:55)
[2024-07-04] MEDS ORDERED: BENZOCAINE/MENTH/CETYLPYRD CL 1 EACH LOZENGE MM PRN (11:04)
[2024-07-04 11:54] LABS: BASO % 0.7 % (0-2.0); EOS % 3.5 % (0-4.5); HEMATOCRIT 25.9 % (35.4-49); HEMOGLOBIN 8.2 GM/dL (11.7-16.9); LYMPH % 21.7 % (8-40); MCH 24.5 pg (25.7-33.7); MCHC 31.7 g/dl (32.0-35.9); MEAN CELL VOLUME 77.3 fl (80-96); MEAN PLT VOLUME 7.9 fl (7.5-11.1); MONO % 7.4 % (3.8-10.2); NEUT % 66.7 % (42.8-82.8); PLATELET COUNT 274 10^3/uL (134-434); RBC 3.35 M/mm3 (4.00-5.60); RDW 17.9 % (11.9-15.9); RETICULOCYTES 1.53 % (0.5-1.5); WHITE BLOOD COUNT 8.4 K/mm3 (4.0-10.0)
[2024-07-04 12:17] LABS: CHLORIDE 102 mmol/L (98-107); SODIUM 141 mmol/L (136-145)
[2024-07-04 12:20] LABS: ALBUMIN 2.1 g/dl (3.4-5.0); ANION GAP 8 mmol/L (4-13); BLOOD UREA NITROGEN 53.2 mg/dL (7-18); CO2 31 mmol/L (21-32); GLUCOSE,RANDOM 94 mg/dL (74-106)
[2024-07-04 12:22] LABS: IRON SERUM 19 ug/dL (50-175); SGOT/AST 14 U/L (15-37); SGPT/ALT 26 U/L (13-61)
[2024-07-04 12:24] LABS: TOTAL IRON BINDING CAPACITY 165 ug/dL (250-450)
[2024-07-04 12:25] LABS: ALK PHOS 87 U/L (45-117); BILIRUBIN,TOTAL 0.3 mg/dL (0.2-1); TOT PROT 6.7 g/dl (6.4-8.2)
[2024-07-04 12:30] LABS: CREATININE 8.5 mg/dL (0.55-1.3)
[2024-07-04] MEDS: guaiFENesin 600 MG TABLET.ER (FP) PO SCH (13:19)
[2024-07-05 09:53] LABS: HEMATOCRIT 25.8 % (35.4-49); HEMOGLOBIN 8.2 GM/dL (11.7-16.9); MCH 24.6 pg (25.7-33.7); MCHC 31.8 g/dl (32.0-35.9); MEAN CELL VOLUME 77.4 fl (80-96); MEAN PLT VOLUME 7.8 fl (7.5-11.1); PLATELET COUNT 293 10^3/uL (134-434); RBC 3.33 M/mm3 (4.00-5.60); RDW 17.6 % (11.9-15.9); WHITE BLOOD COUNT 8.5 K/mm3 (4.0-10.0)
[2024-07-05] MEDS ORDERED: SODIUM CHLORIDE 250 ML IV PRN ×2 (10:00→15:39)
[2024-07-05 10:03] LABS: CHLORIDE 101 mmol/L (98-107); POTASSIUM 4.8 mmol/L (3.5-5.1); SODIUM 143 mmol/L (136-145)
[2024-07-05 10:07] LABS: ALBUMIN 2.1 g/dl (3.4-5.0); ANION GAP 13 mmol/L (4-13); BLOOD UREA NITROGEN 58.4 mg/dL (7-18); CO2 29 mmol/L (21-32); GLUCOSE,RANDOM 160 mg/dL (74-106)
[2024-07-05 10:09] LABS: SGPT/ALT 25 U/L (13-61)
[2024-07-05 10:10] LABS: SGOT/AST 15 U/L (15-37)
[2024-07-05 10:12] LABS: BILIRUBIN,TOTAL 0.3 mg/dL (0.2-1); TOT PROT 6.6 g/dl (6.4-8.2)
[2024-07-05 10:13] LABS: ALK PHOS 81 U/L (45-117)
[2024-07-05] MEDS: EPOETIN ALFA-EPBX 10,000 UNIT/ML VIAL SQ ONE (12:10)
[2024-07-05] MEDS ORDERED: TACROLIMUS ANHYDROUS 1 MG CAPSULE PO SCH (13:22)
[2024-07-05] MEDS: DOCUSATE SODIUM 100 MG CAPSULE (FP) PO PRN (14:50)
[2024-07-05] MEDS ORDERED: BENZOCAINE/MENTH/CETYLPYRD CL 1 EACH LOZENGE MM PRN (15:39)
[2024-07-05] MEDS ORDERED: ALBUTEROL SO4 HFA INHALER IH PRN (15:39)
[2024-07-05] MEDS: NIFEdipine E.R. 30 MG TABLET PO SCH (21:12)
[2024-07-05] MEDS: TAMSULOSIN HCL 0.4 MG CAP PO SCH (21:12)
[2024-07-05] MEDS: guaiFENesin 600 MG TABLET.ER (FP) PO SCH (21:12)
[2024-07-05] MEDS: TACROLIMUS ANHYDROUS 1 MG CAPSULE PO SCH (21:12)
[2024-07-05] MEDS: hydrALAZINE HCL 25 MG TABLET (FP) PO SCH (21:12)
[2024-07-05] MEDS: DOLUTEGRAVIR SODIUM 50 MG TABLET (NON-FORMULARY) PO SCH (21:13)
[2024-07-05] MEDS: lamiVUDine 150 MG TABLET PO SCH (21:13)
[2024-07-05] MEDS: HEPARIN NA (PORCINE) 5,000 UNITS/ML 1ML VIAL SQ SCH (21:13)
[2024-07-06 06:47] VITALS: RESP 18
[2024-07-06] MEDS: predniSONE 5 MG TABLET (UD) PO SCH (10:36)
[2024-07-06] MEDS: CINACALCET HCL 30 MG TAB (FP) PO SCH (10:36)
[2024-07-06] MEDS: ABACAVIR SULFATE 300 MG TABLET PO SCH (10:37)
[2024-07-06 14:16] VITALS: BP 131/68; TEMP 97.3
[2024-07-06 15:13] VITALS: PULSE 84
== END 2024-07-06 15:10 | disposition home or self-care (01) | DRG 291 ==
LOC: JER 07:29 → JERBED 10:05 → J4W 15:31 → J5S 07-05 15:12
PROVIDERS: ADMIT Internal Medicine
PROC: 5A1D70Z Performance of Urinary Filtration, Intermittent, Less than 6 Hours Per Day (ICD-10-PCS; principal; 2024-07-02)
PROC: 5A1D70Z Performance of Urinary Filtration, Intermittent, Less than 6 Hours Per Day (ICD-10-PCS; 2024-07-03)
PROC: 5A1D70Z Performance of Urinary Filtration, Intermittent, Less than 6 Hours Per Day (ICD-10-PCS; 2024-07-05)
DX: I13.2 Hypertensive heart and chronic kidney disease with heart failure and with stage 5 chronic kidney disease, or end stage renal disease (principal); I50.23 Acute on chronic systolic (congestive) heart failure; N18.6 End stage renal disease; T86.12 Kidney transplant failure; F20.89 Other schizophrenia; J44.9 Chronic obstructive pulmonary disease, unspecified; Z21 Asymptomatic human immunodeficiency virus [HIV] infection status; E78.5 Hyperlipidemia, unspecified; F32.A Depression, unspecified; D64.9 Anemia, unspecified; E87.5 Hyperkalemia; Z91.148 Patient's other noncompliance with medication regimen for other reason
CPT/HCPCS: 0241U-QW; 36415; 71045-TC-FY; 80048; 80053; 82607; 82728; 82746; 83540; 83550; 83690; 83735; 83880; 84100; 84132; 84484; 85025; 85027; 85045; 85610; 85730; 87340; 93005; 93010; 99285-25; J1644; Q5106

== ENCOUNTER 2024-07-08 11:34 | Emergency (ER) | payer OTHER ==
[2024-07-08 12:03] VITALS: BP 126/73; PULSE 78; RESP 18; TEMP 98.1; BMI 25.1
== END 2024-07-08 13:01 | disposition left against medical advice (07) ==
LOC: JER 11:34
DX: I13.2 Hypertensive heart and chronic kidney disease with heart failure and with stage 5 chronic kidney disease, or end stage renal disease (principal); I50.20 Unspecified systolic (congestive) heart failure; N18.6 End stage renal disease; Z91.158 Patient's noncompliance with renal dialysis for other reason
CPT/HCPCS: 93005; 93010; 99283-25

== ENCOUNTER 2024-07-20 17:39 | Inpatient (IN) | payer OTHER ==
[2024-07-20 18:11] VITALS: BMI 25.1
[2024-07-20 18:45] LABS: BASO % 0.4 % (0-2.0); EOS % 1.5 % (0-4.5); HEMATOCRIT 27.5 % (35.4-49); HEMOGLOBIN 8.5 GM/dL (11.7-16.9); LYMPH % 15.9 % (8-40); MCH 23.6 pg (25.7-33.7); MCHC 30.7 g/dl (32.0-35.9); MEAN CELL VOLUME 76.7 fl (80-96); MEAN PLT VOLUME 8.8 fl (7.5-11.1); MONO % 4.9 % (3.8-10.2); NEUT % 77.3 % (42.8-82.8); PLATELET COUNT 269 10^3/uL (134-434); RBC 3.58 M/mm3 (4.00-5.60); RDW 18.2 % (11.9-15.9); WHITE BLOOD COUNT 9.6 K/mm3 (4.0-10.0)
[2024-07-20 18:54] LABS: INR 1.43 (0.83-1.09)
[2024-07-20 18:56] LABS: ACTIVATED PTT 29.8 SECONDS (25.2-36.5)
[2024-07-20] MEDS ORDERED: CALCIUM GLUCONATE 10% - 1,000 MG/10 ML VIAL ONE (18:56)
[2024-07-20] MEDS: CALCIUM GLUCONATE 10% - 1,000 MG/10 ML VIAL IVPUSH ONE (19:01)
[2024-07-20 19:03] LABS: CHLORIDE 97 mmol/L (98-107); SODIUM 134 mmol/L (136-145)
[2024-07-20 19:05] LABS: CALCIUM 9.8 mg/dL (8.5-10.1)
[2024-07-20 19:06] LABS: ALBUMIN 2.5 g/dl (3.4-5.0); CO2 24 mmol/L (21-32); GLUCOSE,RANDOM 78 mg/dL (74-106); MAGNESIUM 2.8 mg/dL (1.8-2.4)
[2024-07-20 19:09] LABS: SGOT/AST 15 U/L (15-37); SGPT/ALT 16 U/L (13-61)
[2024-07-20 19:10] LABS: BILIRUBIN,TOTAL 0.5 mg/dL (0.2-1); TOT PROT 7.6 g/dl (6.4-8.2)
[2024-07-20 19:12] LABS: ALK PHOS 94 U/L (45-117)
[2024-07-20 19:35] LABS: ANION GAP 14 mmol/L (4-13); BLOOD UREA NITROGEN 142.3 mg/dL (7-18); CREATININE 15.2 mg/dL (0.55-1.3); POTASSIUM 8.4 mmol/L (3.5-5.1)
[2024-07-20] MEDS ORDERED: ALBUTEROL SO4 0.083% IH SOL 2.5 MG/3 ML VIAL.NEB. NEB ONE (19:55)
[2024-07-20] MEDS ORDERED: DEXTROSE 50%-WATER 25 GM/50 ML DISP.SYRIN ONE (19:55)
[2024-07-20] MEDS: ALBUTEROL SO4 0.083% IH SOL 2.5 MG/3 ML VIAL.NEB. NEB ONE (20:00)
[2024-07-20] MEDS: DEXTROSE 50%-WATER - 25 GM/50 ML VIAL IVPUSH ONE (20:00)
[2024-07-20] MEDS: INSULIN REGULAR HUMAN 100 UNITS/ML *VIAL IVPUSH ONE (20:53)
[2024-07-20] MEDS: HEPARIN NA (PORCINE) 5,000 UNITS/ML 1ML VIAL IVPUSH ONE (21:35)
[2024-07-20] MEDS ORDERED: SODIUM CHLORIDE 250 ML IV PRN (21:52)
[2024-07-20] MEDS: HEPARIN NA (PORCINE) 5,000 UNITS/ML 1ML VIAL SQ SCH (22:00)
[2024-07-20] MEDS: EPOETIN ALFA-EPBX 10,000 UNIT/ML VIAL SQ ONE (22:30)
[2024-07-21] MEDS ORDERED: DOCUSATE SODIUM 100 MG CAPSULE (FP) PO PRN (00:24)
[2024-07-21] MEDS ORDERED: ALBUTEROL SO4 HFA INHALER IH PRN (00:24)
[2024-07-21] MEDS ORDERED: SODIUM CHLORIDE 250 ML IV PRN (08:57)
[2024-07-21 09:10] LABS: BASO % 0.9 % (0-2.0); EOS % 3.2 % (0-4.5); HEMATOCRIT 25.6 % (35.4-49); HEMOGLOBIN 7.9 GM/dL (11.7-16.9); LYMPH % 14.9 % (8-40); MCH 23.6 pg (25.7-33.7); MCHC 30.9 g/dl (32.0-35.9); MEAN CELL VOLUME 76.4 fl (80-96); MEAN PLT VOLUME 8.5 fl (7.5-11.1); MONO % 6.1 % (3.8-10.2); NEUT % 74.9 % (42.8-82.8); PLATELET COUNT 254 10^3/uL (134-434); RBC 3.35 M/mm3 (4.00-5.60); RDW 18.2 % (11.9-15.9)
[2024-07-21] MEDS ORDERED: FERROUS SO4 325 MG TABLET (FP) PO SCH (10:00)
[2024-07-21] MEDS: hydrALAZINE HCL 25 MG TABLET (FP) PO SCH (10:14)
[2024-07-21] MEDS: TORSEMIDE 100 MG TABLET PO SCH (10:16)
[2024-07-21] MEDS: predniSONE 5 MG TABLET (UD) PO SCH ×2 (10:16→10:18)
[2024-07-21] MEDS: NIFEdipine E.R. 30 MG TABLET PO SCH (10:16)
[2024-07-21] MEDS: SODIUM ZIRCONIUM CYCLOSILICATE (LOKELMA) 5 GM PACKET PO SCH (10:17)
[2024-07-21] MEDS: HEPARIN NA (PORCINE) 5,000 UNITS/ML 1ML VIAL IVPUSH ONE (11:15)
[2024-07-21 12:01] LABS: ALBUMIN 2.3 g/dl (3.4-5.0); ALK PHOS 91 U/L (45-117); ANION GAP 13 mmol/L (4-13); BILIRUBIN,TOTAL 0.4 mg/dL (0.2-1); BLOOD UREA NITROGEN 112.2 mg/dL (7-18); CALCIUM 9.2 mg/dL (8.5-10.1); CHLORIDE 101 mmol/L (98-107); CO2 23 mmol/L (21-32); CREATININE 12.4 mg/dL (0.55-1.3); GLUCOSE,RANDOM 125 mg/dL (74-106); MAGNESIUM 2.4 mg/dL (1.8-2.4); PHOSPHOROUS > 9.0 mg/dL (2.5-4.9); POTASSIUM 6.9 mmol/L (3.5-5.1); SGOT/AST 16 U/L (15-37); SGPT/ALT 15 U/L (13-61); SODIUM 137 mmol/L (136-145); TOT PROT 7.2 g/dl (6.4-8.2)
[2024-07-21] MEDS: EPOETIN ALFA-EPBX 10,000 UNIT/ML VIAL SQ ONE (12:50)
[2024-07-21] MEDS: ABACAVIR SULFATE 300 MG TABLET PO SCH (16:12)
[2024-07-21] MEDS: CINACALCET HCL 30 MG TAB (FP) PO SCH (16:12)
[2024-07-21] MEDS: TACROLIMUS ANHYDROUS 1 MG CAPSULE PO SCH (16:12)
[2024-07-21] MEDS: DOLUTEGRAVIR SODIUM 50 MG TABLET (NON-FORMULARY) PO SCH (16:13)
[2024-07-21] MEDS: lamiVUDine 150 MG TABLET PO SCH (16:13)
[2024-07-21] MEDS: SODIUM ZIRCONIUM CYCLOSILICATE (LOKELMA) 5 GM PACKET PO ONE (16:13)
[2024-07-21] MEDS: CALCIUM GLUC IN NACL, ISO-OSM 1 GM/50 ML BAG IVPB ONE (16:13)
[2024-07-21] MEDS: TAMSULOSIN HCL 0.4 MG CAP PO SCH (21:36)
[2024-07-22] MEDS: ACETAMINOPHEN 325 MG TABLET (FP) PO ONE (05:57)
[2024-07-22 07:57] LABS: HEMATOCRIT 25.1 % (35.4-49); HEMOGLOBIN 7.6 GM/dL (11.7-16.9); MCH 23.5 pg (25.7-33.7); MCHC 30.5 g/dl (32.0-35.9); MEAN PLT VOLUME 8.2 fl (7.5-11.1); PLATELET COUNT 248 10^3/uL (134-434); RBC 3.26 M/mm3 (4.00-5.60); RDW 18.1 % (11.9-15.9); WHITE BLOOD COUNT 8.4 K/mm3 (4.0-10.0)
[2024-07-22 08:52] LABS: CHLORIDE 100 mmol/L (98-107); POTASSIUM 5.2 mmol/L (3.5-5.1); SODIUM 138 mmol/L (136-145)
[2024-07-22 08:55] LABS: ANION GAP 10 mmol/L (4-13); BLOOD UREA NITROGEN 80.3 mg/dL (7-18); CALCIUM 8.5 mg/dL (8.5-10.1); CO2 28 mmol/L (21-32); GLUCOSE,RANDOM 140 mg/dL (74-106); MAGNESIUM 2.2 mg/dL (1.8-2.4)
[2024-07-22 08:59] LABS: CREATININE 9.6 mg/dL (0.55-1.3); PHOSPHOROUS 6.7 mg/dL (2.5-4.9)
[2024-07-22] MEDS: PANTOPRAZOLE 40 MG TABLET PO SCH (10:15)
[2024-07-22] MEDS ORDERED: SODIUM CHLORIDE 250 ML IV PRN (15:05)
[2024-07-22] MEDS: FUROSEMIDE 100 MG/10 ML INJECTABLE VIAL IVPB ONE (15:32)
[2024-07-23 14:00] LABS: HEMATOCRIT 23.6 % (35.4-49); HEMOGLOBIN 7.3 GM/dL (11.7-16.9); MCH 23.6 pg (25.7-33.7); MEAN CELL VOLUME 76.2 fl (80-96); PLATELET COUNT 262 10^3/uL (134-434); RDW 18.2 % (11.9-15.9); WHITE BLOOD COUNT 8.1 K/mm3 (4.0-10.0)
[2024-07-23] MEDS: EPOETIN ALFA-EPBX 10,000 UNIT/ML VIAL IVPUSH ONE (14:27)
[2024-07-23 14:52] LABS: MAGNESIUM 2.1 mg/dL (1.8-2.4)
[2024-07-23] MEDS: ALBUTEROL SO4 2.5/IPRATROPIUM 0.5 INH SOL 3 ML VIAL.NEB. NEB SCH (15:16)
[2024-07-23] MEDS: NYSTATIN 100,000 UNIT/GM TOPICAL CREAM 15 GM TUBE TP SCH ×2 (19:26→21:39)
[2024-07-24] MEDS ORDERED: SODIUM CHLORIDE 250 ML IV PRN (08:31)
[2024-07-24] MEDS: EPOETIN ALFA-EPBX 10,000 UNIT/ML VIAL SQ ONE (10:00)
[2024-07-24] MEDS: HEPARIN NA (PORCINE) 5,000 UNITS/ML 1ML VIAL IVPUSH ONE (10:00)
[2024-07-24 15:52] LABS: CALCIUM 8.8 mg/dL (8.5-10.1)
[2024-07-24 15:55] LABS: BLOOD UREA NITROGEN 39.3 mg/dL (7-18)
[2024-07-24 15:56] LABS: CREATININE 5.5 mg/dL (0.55-1.3)
[2024-07-24 15:57] LABS: BILIRUBIN,TOTAL 0.3 mg/dL (0.2-1)
[2024-07-24 15:58] LABS: TOT PROT 6.6 g/dl (6.4-8.2)
[2024-07-25] MEDS ORDERED: SODIUM CHLORIDE 250 ML IV PRN (13:26)
[2024-07-26 09:25] LABS: HEMOGLOBIN 7.3 GM/dL (11.7-16.9); MCH 23.6 pg (25.7-33.7); MCHC 30.6 g/dl (32.0-35.9); MEAN CELL VOLUME 77.1 fl (80-96); MEAN PLT VOLUME 7.7 fl (7.5-11.1); PLATELET COUNT 275 10^3/uL (134-434); RBC 3.11 M/mm3 (4.00-5.60); RDW 18.8 % (11.9-15.9); WHITE BLOOD COUNT 8.2 K/mm3 (4.0-10.0)
[2024-07-26 09:34] LABS: POTASSIUM 4.8 mmol/L (3.5-5.1)
[2024-07-26 09:37] LABS: ALBUMIN 2.1 g/dl (3.4-5.0); BLOOD UREA NITROGEN 54.5 mg/dL (7-18); CALCIUM 8.3 mg/dL (8.5-10.1)
[2024-07-26 09:41] LABS: CREATININE 6.8 mg/dL (0.55-1.3)
[2024-07-26 09:42] LABS: BILIRUBIN,TOTAL 0.3 mg/dL (0.2-1); TOT PROT 6.8 g/dl (6.4-8.2)
[2024-07-26] MEDS: EPOETIN ALFA-EPBX 10,000 UNIT/ML VIAL IVPUSH ONE (10:27)
[2024-07-27] MEDS: NIFEdipine E.R. 30 MG TABLET PO ONE (07:04)
[2024-07-27] MEDS: BISACODYL 5 MG TABLET.DR (FP) PO ONE (11:15)
[2024-07-27] MEDS ORDERED: SODIUM CHLORIDE 250 ML IV PRN (14:57)
[2024-07-28 08:28] LABS: EPI CELLS >36 /uL (0-25.1); HYALINE CASTS 1 /uL (0-3.1); PH,URINE 8.5 (5.0-8.0); URINE APPEARANCE CLOUDY; URINE BACTERIA 4037 /uL (0-1359); URINE BILIRUBIN NEGATIVE (NEGATIVE); URINE COLOR YELLOW; URINE GLUCOSE (UA) TRACE (NEGATIVE); URINE KETONE NEGATIVE (NEGATIVE); URINE LEUK ESTERASE TRACE (NEGATIVE); URINE NITRITE NEGATIVE (NEGATIVE); URINE PROTEIN 4+ (NEGATIVE); URINE RBC 29 /uL (0-23.9); URINE UROBILINOGEN 0.2 mg/dL (0.2-1.0); URINE WBC 51 /uL (0-25.8)
[2024-07-28 12:22] LABS: HEMATOCRIT 23.3 % (35.4-49); HEMOGLOBIN 7.1 GM/dL (11.7-16.9); MCH 23.4 pg (25.7-33.7); MCHC 30.4 g/dl (32.0-35.9); MEAN CELL VOLUME 77.2 fl (80-96); MEAN PLT VOLUME 7.9 fl (7.5-11.1); PLATELET COUNT 245 10^3/uL (134-434); RBC 3.01 M/mm3 (4.00-5.60); RDW 18.6 % (11.9-15.9); WHITE BLOOD COUNT 8.1 K/mm3 (4.0-10.0)
[2024-07-28 12:45] LABS: POTASSIUM 5.7 mmol/L (3.5-5.1)
[2024-07-28 12:47] LABS: ALBUMIN 2.4 g/dl (3.4-5.0); CALCIUM 9.5 mg/dL (8.5-10.1)
[2024-07-28 12:51] LABS: CREATININE 6.6 mg/dL (0.55-1.3)
[2024-07-28 12:52] LABS: BILIRUBIN,TOTAL 0.3 mg/dL (0.2-1); TOT PROT 7.2 g/dl (6.4-8.2)
[2024-07-28] MEDS: EPOETIN ALFA-EPBX 10,000 UNIT/ML VIAL IVPUSH ONE (16:07)
[2024-07-29] MEDS ORDERED: SODIUM CHLORIDE 250 ML IV PRN (15:02)
[2024-07-29] MEDS ORDERED: ALBUTEROL SO4 HFA INHALER IH PRN (22:39)
[2024-07-30] MEDS: HEPARIN NA (PORCINE) 5,000 UNITS/ML 1ML VIAL SQ SCH (05:25)
[2024-07-30] MEDS: ALBUTEROL SO4 2.5/IPRATROPIUM 0.5 INH SOL 3 ML VIAL.NEB. NEB SCH (06:59)
[2024-07-30] MEDS: HEPARIN NA (PORCINE) 5,000 UNITS/ML 1ML VIAL IVPUSH ONE (13:15)
[2024-07-30 14:35] LABS: HEMATOCRIT 22.7 % (35.4-49); MCH 23.6 pg (25.7-33.7); MCHC 30.5 g/dl (32.0-35.9); MEAN CELL VOLUME 77.4 fl (80-96); PLATELET COUNT 236 10^3/uL (134-434); RBC 2.93 M/mm3 (4.00-5.60); RDW 19.3 % (11.9-15.9); WHITE BLOOD COUNT 7.7 K/mm3 (4.0-10.0)
[2024-07-30 14:42] LABS: HEMOGLOBIN 6.9 GM/dL (11.7-16.9)
[2024-07-30 14:55] LABS: POTASSIUM 5.5 mmol/L (3.5-5.1)
[2024-07-30 14:57] LABS: ALBUMIN 2.2 g/dl (3.4-5.0); BLOOD UREA NITROGEN 60.8 mg/dL (7-18); CALCIUM 8.4 mg/dL (8.5-10.1)
[2024-07-30 15:00] LABS: CREATININE 6.4 mg/dL (0.55-1.3)
[2024-07-30 15:02] LABS: BILIRUBIN,TOTAL 0.3 mg/dL (0.2-1); TOT PROT 7.1 g/dl (6.4-8.2)
[2024-07-30] MEDS: EPOETIN ALFA-EPBX 10,000 UNIT/ML VIAL IVPUSH ONE ×2 (15:05→16:03)
[2024-07-30] MEDS: hydrALAZINE HCL 50 MG TABLET (FP) PO SCH (19:02)
[2024-07-30] MEDS: predniSONE 5 MG TABLET (UD) PO SCH (19:03)
[2024-07-30] MEDS: NIFEdipine E.R. 30 MG TABLET PO SCH (19:04)
[2024-07-30] MEDS: TACROLIMUS ANHYDROUS 1 MG CAPSULE PO SCH (19:04)
[2024-07-30] MEDS: PANTOPRAZOLE 40 MG TABLET PO SCH (19:05)
[2024-07-30] MEDS: CINACALCET HCL 30 MG TAB (FP) PO SCH (19:05)
[2024-07-30] MEDS: SODIUM ZIRCONIUM CYCLOSILICATE (LOKELMA) 5 GM PACKET PO SCH (19:22)
[2024-07-30] MEDS: NYSTATIN 100,000 UNIT/GM TOPICAL CREAM 15 GM TUBE TP SCH (19:22)
[2024-07-30] MEDS: lamiVUDine 150 MG TABLET PO SCH (19:36)
[2024-07-30] MEDS: ABACAVIR SULFATE 300 MG TABLET PO SCH (19:37)
[2024-07-30] MEDS: DOLUTEGRAVIR SODIUM 50 MG TABLET (NON-FORMULARY) PO SCH (19:37)
[2024-07-30] MEDS: SODIUM ZIRCONIUM CYCLOSILICATE (LOKELMA) 10 GM PACKET PO SCH (19:44)
[2024-07-30] MEDS: TAMSULOSIN HCL 0.4 MG CAP PO SCH (21:53)
[2024-07-31 08:48] LABS: POTASSIUM 5.4 mmol/L (3.5-5.1)
[2024-07-31 08:58] LABS: ALBUMIN 2.3 g/dl (3.4-5.0); BLOOD UREA NITROGEN 44.8 mg/dL (7-18); CALCIUM 8.3 mg/dL (8.5-10.1)
[2024-07-31 09:01] LABS: CREATININE 4.9 mg/dL (0.55-1.3)
[2024-07-31 09:03] LABS: BILIRUBIN,TOTAL 0.4 mg/dL (0.2-1); TOT PROT 7.1 g/dl (6.4-8.2)
[2024-07-31 16:10] LABS: HEMATOCRIT 25.8 % (35.4-49); MCH 24.3 pg (25.7-33.7); MEAN CELL VOLUME 78.5 fl (80-96); PLATELET COUNT 251 10^3/uL (134-434); RBC 3.28 M/mm3 (4.00-5.60); RDW 19.2 % (11.9-15.9); WHITE BLOOD COUNT 8.1 K/mm3 (4.0-10.0)
[2024-07-31 21:23] VITALS: BP 120/60; PULSE 82; RESP 17; TEMP 98.2
== END 2024-08-01 07:10 | disposition home or self-care (01) | DRG 640 ==
LOC: JER 17:39 → JERBED 18:35 → J4S 07-21 01:23 → OBSVTOIN 07-25 13:33 → J7W 07-29 21:38
PROVIDERS: ADMIT Internal Medicine; ATTEND Internal Medicine
PROC: 30233N1 Transfusion of Nonautologous Red Blood Cells into Peripheral Vein, Percutaneous Approach (ICD-10-PCS; principal; 2024-07-30)
PROC: 5A1D70Z Performance of Urinary Filtration, Intermittent, Less than 6 Hours Per Day (ICD-10-PCS; 2024-07-30)
DX: E87.70 Fluid overload, unspecified (principal); G93.41 Metabolic encephalopathy; N18.6 End stage renal disease; I50.20 Unspecified systolic (congestive) heart failure; I13.2 Hypertensive heart and chronic kidney disease with heart failure and with stage 5 chronic kidney disease, or end stage renal disease; T86.12 Kidney transplant failure; Z21 Asymptomatic human immunodeficiency virus [HIV] infection status; E87.5 Hyperkalemia; J44.9 Chronic obstructive pulmonary disease, unspecified; E83.52 Hypercalcemia; D63.1 Anemia in chronic kidney disease; B35.3 Tinea pedis
CPT/HCPCS: 0241U-QW; 36415; 36430; 70450-TC; 71045-TC-FY; 71250-TC; 80048; 80053; 81003; 82272; 82550; 82962; 83735; 84100; 84484; 85025; 85027; 85610; 85730; 86704; 86803; 86850; 86900; 86901; 86922; 87086; 87186; 87340; 93005; 93010; 93971; 94640; 97116-GP; 97161-GP; 99285-25; G0378; J1644; P9058; Q5106

== ENCOUNTER 2024-08-01 13:46 | Observation (INO) | payer OTHER ==
[2024-08-01 17:27] LABS: BASO % 0.7 % (0-2.0); EOS % 1.8 % (0-4.5); LYMPH % 18.4 % (8-40); MCH 24.4 pg (25.7-33.7); MCHC 31.2 g/dl (32.0-35.9); MEAN CELL VOLUME 78.3 fl (80-96); MEAN PLT VOLUME 7.8 fl (7.5-11.1); MONO % 9.1 % (3.8-10.2); PLATELET COUNT 286 10^3/uL (134-434); RDW 19.4 % (11.9-15.9); WHITE BLOOD COUNT 9.5 K/mm3 (4.0-10.0)
[2024-08-01 17:53] LABS: CHLORIDE 100 mmol/L (98-107); SODIUM 135 mmol/L (136-145)
[2024-08-01 17:55] LABS: CALCIUM 8.6 mg/dL (8.5-10.1)
[2024-08-01 17:56] LABS: ALBUMIN 2.6 g/dl (3.4-5.0); BLOOD UREA NITROGEN 65.3 mg/dL (7-18); CO2 30 mmol/L (21-32); GLUCOSE,RANDOM 76 mg/dL (74-106); MAGNESIUM 2.4 mg/dL (1.8-2.4)
[2024-08-01 17:59] LABS: CREATININE 6.5 mg/dL (0.55-1.3); PHOSPHOROUS 5.2 mg/dL (2.5-4.9); SGOT/AST 42 U/L (15-37); SGPT/ALT 46 U/L (13-61)
[2024-08-01 18:00] LABS: BILIRUBIN,TOTAL 0.4 mg/dL (0.2-1); TOT PROT 8.1 g/dl (6.4-8.2)
[2024-08-01 18:02] LABS: ALK PHOS 156 U/L (45-117)
[2024-08-01 18:06] LABS: ANION GAP 5 mmol/L (4-13); POTASSIUM 6.1 mmol/L (3.5-5.1)
[2024-08-01] MEDS ORDERED: ALBUTEROL SO4 HFA INHALER IH PRN (20:59)
[2024-08-01] MEDS: DOLUTEGRAVIR SODIUM 50 MG TABLET (NON-FORMULARY) PO SCH (21:48)
[2024-08-01] MEDS: lamiVUDine 150 MG TABLET PO SCH (21:48)
[2024-08-01] MEDS: TACROLIMUS ANHYDROUS 1 MG CAPSULE PO SCH (21:48)
[2024-08-01] MEDS: hydrALAZINE HCL 50 MG TABLET (FP) PO ONE (21:50)
[2024-08-01] MEDS: NIFEdipine E.R. 30 MG TABLET PO SCH (21:50)
[2024-08-01] MEDS: TAMSULOSIN HCL 0.4 MG CAP PO SCH (21:51)
[2024-08-01] MEDS ORDERED: hydrALAZINE HCL 25 MG TABLET (FP) PO SCH (22:00)
[2024-08-02] MEDS: DOCUSATE SODIUM 100 MG CAPSULE (FP) PO PRN (00:06)
[2024-08-02] MEDS: ACETAMINOPHEN 325 MG TABLET (FP) PO PRN (00:06)
[2024-08-02 00:53] VITALS: BMI 29.1
[2024-08-02] MEDS: HEPARIN NA (PORCINE) 5,000 UNITS/ML 1ML VIAL SQ SCH (05:22)
[2024-08-02] MEDS: predniSONE 5 MG TABLET (UD) PO SCH (09:54)
[2024-08-02] MEDS: PANTOPRAZOLE 40 MG TABLET PO SCH (09:55)
[2024-08-02] MEDS: hydrALAZINE HCL 50 MG TABLET (FP) PO SCH (09:55)
[2024-08-02] MEDS: CINACALCET HCL 30 MG TAB (FP) PO SCH (09:55)
[2024-08-02] MEDS: ABACAVIR SULFATE 300 MG TABLET PO SCH (09:57)
[2024-08-02] MEDS: TORSEMIDE 100 MG TABLET PO SCH (09:57)
[2024-08-02] MEDS ORDERED: SODIUM CHLORIDE 250 ML IV PRN (11:43)
[2024-08-02] MEDS: HEPARIN NA (PORCINE) 5,000 UNITS/ML 1ML VIAL IVPUSH ONE (15:25)
[2024-08-02] MEDS: HEPARIN NA (PORCINE) 5,000 UNITS/ML 1ML VIAL IVPUSH SCH (15:30)
[2024-08-02 17:14] LABS: HEMATOCRIT 25.1 % (35.4-49); HEMOGLOBIN 7.8 GM/dL (11.7-16.9); MCH 24.2 pg (25.7-33.7); MCHC 31.3 g/dl (32.0-35.9); MEAN CELL VOLUME 77.4 fl (80-96); MEAN PLT VOLUME 8.1 fl (7.5-11.1); PLATELET COUNT 262 10^3/uL (134-434); RBC 3.24 M/mm3 (4.00-5.60); RDW 19.3 % (11.9-15.9); WHITE BLOOD COUNT 8.9 K/mm3 (4.0-10.0)
[2024-08-02 17:29] LABS: CHLORIDE 101 mmol/L (98-107); SODIUM 135 mmol/L (136-145)
[2024-08-02 17:31] LABS: CALCIUM 7.9 mg/dL (8.5-10.1)
[2024-08-02 17:32] LABS: ALBUMIN 2.4 g/dl (3.4-5.0); BLOOD UREA NITROGEN 78.2 mg/dL (7-18); CO2 26 mmol/L (21-32); GLUCOSE,RANDOM 93 mg/dL (74-106)
[2024-08-02 17:35] LABS: CREATININE 7.1 mg/dL (0.55-1.3); SGOT/AST 44 U/L (15-37); SGPT/ALT 52 U/L (13-61)
[2024-08-02 17:37] LABS: BILIRUBIN,TOTAL 0.4 mg/dL (0.2-1); TOT PROT 7.2 g/dl (6.4-8.2)
[2024-08-02 17:38] LABS: ALK PHOS 147 U/L (45-117)
[2024-08-02 17:49] LABS: ANION GAP 9 mmol/L (4-13); POTASSIUM 6.5 mmol/L (3.5-5.1)
[2024-08-02] MEDS: EPOETIN ALFA-EPBX 10,000 UNIT/ML VIAL SQ ONE (18:03)
[2024-08-02 21:37] VITALS: RESP 17
[2024-08-03 10:44] VITALS: BP 141/76; PULSE 87; TEMP 98.8
== END 2024-08-03 13:55 | disposition home or self-care (01) ==
LOC: JER 13:46 → JERBED 18:56 → INTOOBSV 18:56 → UNDOADMOB 18:56 → J5S 21:18 → JERBED 21:18 → J5S 08-02 11:32 → JERBED 08-02 11:32 → J5S 08-02 19:34
PROVIDERS: ADMIT Internal Medicine
PROC: 3E033GC Introduction of Other Therapeutic Substance into Peripheral Vein, Percutaneous Approach (ICD-10-PCS; principal; 2024-08-02)
PROC: 3E013GC Introduction of Other Therapeutic Substance into Subcutaneous Tissue, Percutaneous Approach (ICD-10-PCS; 2024-08-02)
DX: I13.2 Hypertensive heart and chronic kidney disease with heart failure and with stage 5 chronic kidney disease, or end stage renal disease (principal); N18.6 End stage renal disease; I50.9 Heart failure, unspecified; F17.210 Nicotine dependence, cigarettes, uncomplicated; Z99.2 Dependence on renal dialysis; Z94.0 Kidney transplant status; Z91.158 Patient's noncompliance with renal dialysis for other reason; I25.10 Atherosclerotic heart disease of native coronary artery without angina pectoris; E87.79 Other fluid overload; J44.9 Chronic obstructive pulmonary disease, unspecified; Z21 Asymptomatic human immunodeficiency virus [HIV] infection status; E78.5 Hyperlipidemia, unspecified; D50.8 Other iron deficiency anemias; N40.0 Benign prostatic hyperplasia without lower urinary tract symptoms; Z99.81 Dependence on supplemental oxygen
CPT/HCPCS: 36415; 71045-TC-FY; 80048; 80053; 83735; 84100; 85025; 85027; 93005; 93010; 96372; 96374; 96376; 99285-25; G0378; J1644; Q5106

== ENCOUNTER 2025-01-29 06:08 | Observation (INO) | payer OTHER ==
[2025-01-29 06:32] VITALS: BMI 18.9
[2025-01-29] MEDS ORDERED: FAMOTIDINE 20 MG/50 ML IVPB 20 MG/50 ML MG IVPB ONE (07:38)
[2025-01-29] MEDS ORDERED: ACETAMINOPHEN INJECTION 100 ML ONE (07:38)
[2025-01-29] MEDS: ACETAMINOPHEN 1000 MG/100 ML BAG IVPB ONE (08:20)
[2025-01-29] MEDS: FAMOTIDINE 20 MG/50 ML IVPB 20 MG/50 ML MG IVPB ONE (08:25)
[2025-01-29 09:09] LABS: VENOUS BASE EXCESS 7.1 mmol/L (-2-2); VENOUS O2 SATURATION 44.7 % (70-80); VENOUS PH 7.414 (7.310-7.410)
[2025-01-29 09:12] LABS: ABSOLUTE IMMATURE GRANULOCYTES 0.02 x10^3/uL (0.0-0.031); BASOPHILS # 0.07 x10^3/uL (0.01-0.08); HEMATOCRIT 30.1 % (40.1-51.0); HEMOGLOBIN 8.8 g/dL (13.7-17.5); MCHC 29.2 g/dl (32.3-36.5); MEAN CELL VOLUME 75.6 fl (79.0-92.2); MEAN PLT VOLUME 9.2 fl (9.4-12.4); MONOCYTE # 0.46 x10^3/uL (0.30-0.82); MONOCYTE % 6.8 % (5.3-12.2); PLATELET COUNT 408 x10^3/uL (163-337); RDW 18.1 % (12.2-16.4)
[2025-01-29 09:15] LABS: INR 1.32 (0.83-1.09); PROTHROMBIN TIME (PATIENT) 14.4 SEC (9.7-13.0)
[2025-01-29 09:16] LABS: INR 1.3 (0.83-1.09); PROTHROMBIN TIME (PATIENT) 14.2 SEC (9.7-13.0)
[2025-01-29 09:18] LABS: ACTIVATED PTT 33.8 SECONDS (25.2-36.5)
[2025-01-29 09:19] LABS: ACTIVATED PTT 34.3 SECONDS (25.2-36.5)
[2025-01-29 09:28] LABS: CHLORIDE 96 mmol/L (98-107); POTASSIUM 4.4 mmol/L (3.5-5.1); SODIUM 135 mmol/L (136-145)
[2025-01-29 09:30] LABS: ALBUMIN 2.2 g/dl (3.4-5.0); CALCIUM 9.7 mg/dL (8.5-10.1)
[2025-01-29 09:31] LABS: ANION GAP 5 mmol/L (4-13); BLOOD UREA NITROGEN 48.4 mg/dL (7-18); CO2 33 mmol/L (21-32); GLUCOSE,RANDOM 68 mg/dL (74-106); MAGNESIUM 2.3 mg/dL (1.8-2.4)
[2025-01-29 09:33] LABS: SGOT/AST 17 U/L (15-37); SGPT/ALT 15 U/L (13-61)
[2025-01-29 09:34] LABS: PHOSPHOROUS 4.3 mg/dL (2.5-4.9)
[2025-01-29 09:35] LABS: BILIRUBIN,TOTAL 0.5 mg/dL (0.2-1)
[2025-01-29 09:36] LABS: ALK PHOS 153 U/L (45-117)
[2025-01-29 09:37] LABS: CREATININE 8.8 mg/dL (0.55-1.3)
[2025-01-29] MEDS ORDERED: SODIUM CHLORIDE 250 ML IV PRN (12:40)
[2025-01-29 14:53] LABS: HEPATITIS B SURF AG NON-MATERN NON-REACTIVE (NONREACTIVE)
[2025-01-29 15:22] LABS: HCV DIAGNOSTIC IN-HOUSE W/RFLX NON-REACTIVE (NONREACTIVE)
[2025-01-29] MEDS ORDERED: DOCUSATE SODIUM 100 MG CAPSULE (FP) PO PRN (15:54)
[2025-01-29] MEDS ORDERED: ALBUTEROL SO4 HFA INHALER IH PRN (15:54)
[2025-01-29] MEDS: EPOETIN ALFA-EPBX 10,000 UNIT/ML VIAL SQ ONE (16:20)
[2025-01-29] MEDS ORDERED: TACROLIMUS ANHYDROUS 1 MG CAPSULE PO SCH (22:00)
[2025-01-29] MEDS ORDERED: NIFEdipine E.R. 30 MG TABLET PO SCH (22:00)
[2025-01-29] MEDS ORDERED: TACROLIMUS ANHYDROUS 5 MG CAPSULE PO SCH (22:00)
[2025-01-29] MEDS: HEPARIN NA (PORCINE) 5,000 UNITS/ML 1ML VIAL SQ SCH (22:25)
[2025-01-29] MEDS: DOLUTEGRAVIR SODIUM 50 MG TABLET (NON-FORMULARY) PO SCH (22:25)
[2025-01-29] MEDS: LIDOCAINE PATCH REMOVAL MC SCH (22:26)
[2025-01-30] MEDS: LIDOCAINE 5% TOPICAL PATCH TP ONE (07:27)
[2025-01-30] MEDS ORDERED: predniSONE 5 MG TABLET (UD) PO SCH (10:00)
[2025-01-30] MEDS ORDERED: SODIUM ZIRCONIUM CYCLOSILICATE (LOKELMA) 5 GM PACKET PO SCH (10:00)
[2025-01-30] MEDS: NIFEdipine E.R. 30 MG TABLET PO SCH (10:46)
[2025-01-30] MEDS: predniSONE 5 MG TABLET (UD) PO SCH (10:46)
[2025-01-30] MEDS: PANTOPRAZOLE 40 MG TABLET PO SCH (10:46)
[2025-01-30] MEDS: lamiVUDine 10 MG/1 ML BULK BOTTLE PO SCH (10:46)
[2025-01-30] MEDS: CINACALCET HCL 30 MG TAB (FP) PO SCH (11:24)
[2025-01-30] MEDS: ABACAVIR SULFATE 300 MG TABLET PO SCH (11:24)
[2025-01-31] MEDS: ACETAMINOPHEN 325 MG TABLET (FP) PO PRN (07:29)
[2025-01-31 08:35] LABS: BASOPHILS # 0.04 x10^3/uL (0.01-0.08); HEMOGLOBIN 7.8 g/dL (13.7-17.5)
[2025-01-31 08:37] LABS: ABSOLUTE IMMATURE GRANULOCYTES 0.03 x10^3/uL (0.0-0.031); EOSINOPHILS # 0.16 x10^3/uL (0.04-0.54); HEMATOCRIT 27.3 % (40.1-51.0); MCHC 28.6 g/dl (32.3-36.5); MONOCYTE % 7.6 % (5.3-12.2); PLATELET COUNT 367 x10^3/uL (163-337); RDW 18.2 % (12.2-16.4)
[2025-01-31 09:01] LABS: POTASSIUM 4.6 mmol/L (3.5-5.1)
[2025-01-31 09:07] LABS: BLOOD UREA NITROGEN 39.4 mg/dL (7-18); CALCIUM 9.1 mg/dL (8.5-10.1)
[2025-01-31 09:08] LABS: MAGNESIUM 2.2 mg/dL (1.8-2.4)
[2025-01-31 09:11] LABS: CREATININE 7.1 mg/dL (0.55-1.3); PHOSPHOROUS 3.2 mg/dL (2.5-4.9)
[2025-01-31 14:12] VITALS: RESP 18
[2025-01-31] MEDS: lamiVUDine 150 MG TABLET PO SCH ×2 (15:05→17:12)
[2025-01-31] MEDS ORDERED: SODIUM CHLORIDE 250 ML IV PRN (16:10)
[2025-01-31] MEDS: TAMSULOSIN HCL 0.4 MG CAP PO SCH (21:02)
[2025-02-01 08:04] LABS: HEMATOCRIT 27.1 % (40.1-51.0); HEMOGLOBIN 7.8 g/dL (13.7-17.5); MCHC 28.8 g/dl (32.3-36.5); MEAN CELL VOLUME 75.9 fl (79.0-92.2); MEAN PLT VOLUME 8.8 fl (9.4-12.4); PLATELET COUNT 366 x10^3/uL (163-337); RDW 18.3 % (12.2-16.4)
[2025-02-01 08:28] LABS: MAGNESIUM 2.3 mg/dL (1.8-2.4)
[2025-02-01 08:32] LABS: PHOSPHOROUS 3.2 mg/dL (2.5-4.9)
[2025-02-01] MEDS: EPOETIN ALFA-EPBX 10,000 UNIT, EPOETIN ALFA-EPBX 2,000 UNIT IVPUSH ONE (09:44)
[2025-02-01] MEDS: VITAMIN B COMP W-C 1 EA TABLET (NEPHRO-VITE) PO SCH (11:18)
[2025-02-01 12:28] VITALS: BP 140/86; PULSE 87; TEMP 99
[2025-02-01] MEDS ORDERED: EPOETIN ALFA-EPBX 10,000 UNIT/ML VIAL SQ ONE (16:10)
[2025-02-01] MEDS ORDERED: EPOETIN ALFA-EPBX 10,000 UNIT, EPOETIN ALFA-EPBX 2,000 UNIT IVPUSH ONE (16:30)
== END 2025-02-01 14:12 | disposition short-term general hospital (02) ==
LOC: JER 06:08 → UNDOADMOB 13:46 → INTOOBSV 13:46 → JERBED 13:46 → J8W 18:26 → JERBED 18:26 → J8W 01-30 11:29 → JERBED 01-30 11:29
PROVIDERS: ADMIT Internal Medicine; ATTEND Nurse Practitioner Family
PROC: 3E033NZ Introduction of Analgesics, Hypnotics, Sedatives into Peripheral Vein, Percutaneous Approach (ICD-10-PCS; principal; 2025-01-30)
PROC: 3E023GC Introduction of Other Therapeutic Substance into Muscle, Percutaneous Approach (ICD-10-PCS; 2025-01-30)
PROC: 3E033GC Introduction of Other Therapeutic Substance into Peripheral Vein, Percutaneous Approach (ICD-10-PCS; 2025-01-30)
DX: Z94.0 Kidney transplant status (principal); I11.0 Hypertensive heart disease with heart failure; E78.5 Hyperlipidemia, unspecified; D64.9 Anemia, unspecified; J44.9 Chronic obstructive pulmonary disease, unspecified; B20 Human immunodeficiency virus [HIV] disease; F19.99 Other psychoactive substance use, unspecified with unspecified psychoactive substance-induced disorder; I12.0 Hypertensive chronic kidney disease with stage 5 chronic kidney disease or end stage renal disease; N18.6 End stage renal disease; Z99.2 Dependence on renal dialysis; Z86.19 Personal history of other infectious and parasitic diseases; F32.A Depression, unspecified; F20.9 Schizophrenia, unspecified; R29.6 Repeated falls; X58.XXXA Exposure to other specified factors, initial encounter; Z91.158 Patient's noncompliance with renal dialysis for other reason; F17.210 Nicotine dependence, cigarettes, uncomplicated
CPT/HCPCS: 0241U-QW; 36415; 71045-TC-FY; 74176-TC; 80048; 80053; 82803; 82962; 83605; 83690; 83735; 84100; 84484; 85025; 85027; 85610; 85730; 86803; 86850; 86900; 86901; 87040; 87340; 87517; 93005; 93010; 96365; 96372; 96375; 97116-GP; 97161-GP; 99285-25; G0378; Q5106